=== PATIENT | female | born 1945 | race Caucasian/White ===

== ENCOUNTER 2018-08-14 09:24 | Day surgery (SDC) | payer MEDICARE, OTHER, SELFPAY ==
--- NOTE | 2018-08-14 | PATH_ITS ---
[facility] Accession Number: [id number] . 01 Material submitted: . colon - RIGHT COLON SMALL SESSILE POLYP . 02 Diagnosis: Right Colon, Small Sessile Polyp: Tubular adenoma. [facility]/08/18/2018 . 02 Electronically signed: . Joni Claudio MD, PhD, Pathologist NPI- [id number] . 01 Gross description: . RIGHT COLON SMALL SESSILE POLYP: Received in formalin is 1 fragment(s) of lepe, soft tissue measuring 0.5 x 0.3 x 0.3 cm submitted entirely in 1 cassette(s) /CKI /CKI . 02 Pathologist provided ICD-10: D12.6 . 02 CPT . 369990 Performed at: 01 [facility] [address] [id number] MD Aries Ramey MD Phone: [phone] Performed at: 02 [facility] [address] [place], [place] [id number] MD Soco Olson MD Phone: [phone]
[2018-08-14 12:34] VITALS: BP 132/73; PULSE 54; RESP 16; TEMP 36.4; O2SAT 98; BMI 35.2
--- NOTE | 2018-08-14 13:18 | PM.HP.1 ---
History of Present Illness Date Patient Seen: 08/14/18 Time Patient Seen: 13:18 Chief complaint: [id number] Narrative: 73-year-old female presents for screening colonoscopy her last screening colonoscopy was over 10 years ago, she does not have a personal or family history of colon polyps or colorectal cancer. Generally well without intestinal complaints Tolerated the prep Patient History Medical History (Updated 08/14/18 @ 13:19 by Yoni Martinez MD) Hypertension (Acute) Surgical History (Updated 08/06/17 @ 06:15 by Conversion Provider) History of carpal tunnel repair History of knee replacement History of knee replacement Status post dilation and curettage Status post discectomy Family History (Updated 02/16/14 @ 00:00 by Conversion Provider) Child Age: 51 Aortic stenosis Father Diabetes mellitus Heart disease Sleep apnea Mother Age: 94 Dementia Hx of cancer of uterus Sister Age: 65 Hx of cancer of uterus Sleep apnea Social History household members: none Family & Social History Family History (Updated 02/16/14 @ 00:00 by Conversion Provider) Child Age: 51 Aortic stenosis Father Diabetes mellitus Heart disease Sleep apnea Mother Age: 94 Dementia Hx of cancer of uterus Sister Age: 65 Hx of cancer of uterus Sleep apnea Social History: household members none Meds Home Medications Medication Instructions Recorded Confirmed Type CALCIUM CARBONATE (#CALCIUM) 1,000 mg PO Q DAY #0 05/28/11 08/14/18 History CHOLECALCIFEROL (VITAMIN D3) 2,000 iu PO Q DAY #0 05/28/11 08/14/18 History (Vitamin D) COENZYME Q10 (COQ10) 300 mg PO Q DAY #0 05/28/11 08/14/18 History Fish Oil (#FISH OIL) 300 iu PO Q DAY #0 05/28/11 08/14/18 History amlodipine [Norvasc] 5 mg PO QDAY #90 tab 02/15/17 08/14/18 Rx metoprolol tartrate 50 mg tablet 50 mg PO BID #90 tab 02/26/18 08/14/18 Rx atorvastatin 10 mg tablet 10 mg PO HS #30 tab 05/15/18 08/14/18 Rx lisinopril 20 mg tablet 20 mg PO BID #60 tab 05/15/18 08/14/18 Rx triamcinolone acetonide 0 TOPICAL BID PRN 08/14/18 History Allergies Allergy/AdvReac Type Severity Reaction Status Date / Time No Known Allergies Allergy Uncoded 08/14/18 12:40 Review of Systems Constitutional Constitutional: Denies fever(s) Eyes Eyes: Denies bulging eyes ENT Ears, Nose, Mouth, and Throat: No lip swelling Cardiovascular Cardiovascular: Denies generalize swelling Respiratory Respiratory: Denies stridor Gastrointestinal Gastrointestinal: Denies coffee ground emesis Musculoskeletal Musculoskeletal: Denies loss of height Integumentary/Breasts Skin/Breast: Denies wounds Neurologic Neurologic: Denies abnormal speech and Denies confusion Psychiatric Psychiatric: Denies confusion Endocrine Endocrine: Denies deepening of the voice Hematologic/Lymphatic Hematologic/Lymphatic: Denies lymphadenopathy Allergic/Immunologic Allergic/Immunologic: Denies lip swelling Exam Vital Signs (past 8 hours): - 08/14/18 12:34 Temperature 97.5 F L Pulse Rate 54 L Respiratory Rate 16 Blood Pressure 132/73 Pulse Oximetry 98 Oxygen Delivery Method Room Air Const General: cooperative and healthy appearing Orientation: alert HENMT Head: normal to inspection Nose: nares normal Mouth: oral mucosae normal and lip normal Eyes Eyelids: eyelids normal Conjunctivae: conjunctivae normal Sclera: sclerae normal Neck Neck: supple and other (No thyromegally) Chest Chest: other (LCTAB , regular respiratory effort) Cardio Rhythm: regular rhythm Heart Sounds: S1 normal, S2 normal, no gallops and no rubs Other: Two hundred six flow murmur at the cardiac base GI Other: Abdomen soft nontender nondistended Skin General: no rashes or lesions noted Neuro General: alert and awake Psych Appearance: grossly normal Affect: normal affect Assessment & Plan Assessment & Plan narrative: 73-year-old woman presents for screening colonoscopy Risks and benefits of colonoscopy were discussed -including risk of , perforation, missed lesion, hypoxia This patient is ready to proceed
[2018-08-14] MEDS: MIDAZOLAM 5 MG/5 ML VIAL IV (13:50)
[2018-08-14] MEDS: fentaNYL 250 MCG/5 ML INJ IV (13:51)
--- NOTE | 2018-08-14 14:17 | PM.OP.ENDO ---
Operative Date/Time/Diagnoses Date of procedure: 08/14/18 Time of procedure: 14:17 Post-op diagnosis: other (Colon polyp) Procedure & Clinicians Study performed: Screening colonoscopy, cold biopsy forcep polypectomy x1 right colon Same procedure as scheduled: No Indications: 73-year-old female presents for screening colonoscopy her last screening colonoscopy was 11 years ago Surgeon: Yoni Martinez Procedure Notes SCOAP/Timeout: Completed Procedure in detail: Patient was brought to the endoscopy suite, a time-out was completed, patient was sedated with midazolam and fentanyl. A digital rectal exam was performed and were no polyps or masses palpated. 160 cm colonoscope was introduced through the anus and advanced through the rectum, a transit through the sigmoid colon into the left colon and through the transverse colon without difficulty. some time was needed with multiple passes to successfully pass through the hepatic flexure. This was done successfully and the scope was advanced to the cecum. Ileocecal valve was identified as was the appendiceal orifice and the [place] foot. The scope was then withdrawn with the scope withdrawal time 10 minutes. There is a small sessile polyp noted within the right colon -this was removed with cold biopsy forceps. Area was irrigated after removal and reinspected and polyp was found to be entirely removed. He then continued to back the colonoscope out. No additional polyps were identified. there were scattered sigmoid diverticula Scope was retroflexed in the distal rectum and no distal rectal lesions identified Prep was adequate Scope withdrawal time: 10 minutes Sedation minutes: 49 Findings: diverticulosis Specimen(s): other (Right colon sessile polyp) Impression: 1. Sigmoid diverticulosis 2. Right colon small sessile polyp status post cold biopsy x1 Recommendations: Colonscopy in 5 years Follow up: as needed Disposition: PACU
[2018-08-14 15:09] VITALS: BP 123/72; PULSE 57; RESP 16; TEMP 36.4; O2SAT 97
== END 2018-08-14 15:05 | disposition home or self-care (01) ==
PROVIDERS: PCP Family Medicine; Visit Provider Surgery
PROC: 0DJD8ZZ Inspection of Lower Intestinal Tract, Via Natural or Artificial Opening Endoscopic (ICD-10-PCS; CPT 45378; principal; 2018-08-14 10:45)
DX: Z12.11 Encounter for screening for malignant neoplasm of colon (principal); K57.30 Diverticulosis of large intestine without perforation or abscess without bleeding; I10 Essential (primary) hypertension; D12.2 Benign neoplasm of ascending colon
CPT/HCPCS: 45380; 88305; 99152; 99153; J2250; J3010

== ENCOUNTER → 2018-09-18 09:30 | Outpatient (CLI) | payer MEDICARE, OTHER, SELFPAY ==
[2018-09-18 10:04] LABS: Add Manual Diff / Slide Review NO; Basophils Absolute Auto 100 /uL (0-100); Basophils Percent Auto 1.3 % (0-2); Eosinophils Absolute Auto 200 /uL (0-450); Eosinophils Percent Auto 3.7 % (2-4); Hematocrit 34.4 % (36-46); Hemoglobin 11.9 g/dL (12.0-16.0); Lymphocytes Absolute Auto 1600 /uL (1100-4500); Mean Corpuscular HGB Conc 34.7 % (30-36); Mean Corpuscular Hemoglobin 29.6 PG (26-34); Mean Corpuscular Volume 85.3 fL (80-100); Monocytes Absolute Auto 400 /uL (0-900); Monocytes Percent Auto 7.8 % (3-14); Neutrophils Absolute Auto 3000 /uL (1500-7000); Neutrophils Percent Auto 57.2 % (50-75); Platelet Count 225 X10^3/uL (150-400); Red Blood Cell Count 4.03 X10^6/uL (4.0-5.2); Red Cell Distribution Width 13.3 % (11.6-14.8); White Blood Cell Count 5.2 X10^3/uL (4.5-11.0)
[2018-09-18 10:24] LABS: Alanine Aminotransferase 18 IU/L (9-52); Albumin 4.4 g/dL (3.5-5.0); Albumin Globulin Ratio 1.5 (1.0-2.8); Alkaline Phosphatase 79 U/L (38-126); Aspartate Aminotransferase 23 IU/L (14-36); Bilirubin Total 0.6 mg/dL (0.2-1.3); Blood Urea Nitrogen 12 mg/dL (7-17); C-Reactive Protein Quant 0.7 mg/dL (<1.0); Calcium 9.7 mg/dL (8.4-10.2); Carbon Dioxide 26 mmol/L (22-32); Chloride 95 mmol/L (98-107); Cholesterol 143 mg/dL (140-199); Estimated Glomerular Filt Rate > 60.0 mL/min (>60); Globulin 2.9 g/dL (1.7-4.1); Glucose 99 mg/dL (80-110); HDL Cholesterol 49 mg/dL (40-60); HEMOLYSIS < 15 (0-50); LDL Cholesterol Calculated 70 mg/dL (<100); Potassium 4.7 mmol/L (3.4-5.1); Sodium 130 mmol/L (137-145); Total Protein 7.3 g/dL (6.3-8.2); Triglycerides 119 mg/dL (35-150)
[2018-09-18 10:46] LABS: Erythrocyte Sedimentation Rate 33 MM/HR (0-20)
[2018-09-18 10:54] LABS: Hemoglobin A1C% w Est Avg Glu 5.4 % (4.0-6.0)
[2018-09-18 11:24] LABS: Thyroid Stimulating Hormone 2.87 uIU/mL (0.47-4.68)
== END ==
PROVIDERS: PCP Family Medicine; Visit Provider Family Medicine
DX: E78.2 Mixed hyperlipidemia (principal); I10 Essential (primary) hypertension; K02.9 Dental caries, unspecified; K05.10 Chronic gingivitis, plaque induced; Z13.1 Encounter for screening for diabetes mellitus; Z13.29 Encounter for screening for other suspected endocrine disorder
CPT/HCPCS: 36415; 80053; 80061; 83036; 84443; 85025; 85651; 86140

== ENCOUNTER → 2020-03-21 11:11 | Outpatient (CLI) | payer MEDICARE, OTHER, SELFPAY ==
[2020-03-21 11:39] LABS: Add Manual Diff / Slide Review NO; Basophils Absolute Auto 100 /uL (0-100); Basophils Percent Auto 1.2 % (0-2); Eosinophils Absolute Auto 100 /uL (0-450); Eosinophils Percent Auto 1.7 % (2-4); Hematocrit 37.8 % (36-46); Hemoglobin 12.6 g/dL (12.0-16.0); Lymphocytes Absolute Auto 1800 /uL (1100-4500); Lymphocytes Percent Auto 30.2 % (25-40); Mean Corpuscular HGB Conc 33.3 % (30-36); Mean Corpuscular Hemoglobin 29.3 PG (26-34); Mean Corpuscular Volume 87.8 fL (80-100); Monocytes Absolute Auto 500 /uL (0-900); Monocytes Percent Auto 7.5 % (3-14); Neutrophils Absolute Auto 3600 /uL (1500-7000); Neutrophils Percent Auto 59.4 % (50-75); Platelet Count 250 X10^3/uL (150-400); Red Blood Cell Count 4.31 X10^6/uL (4.0-5.2); Red Cell Distribution Width 13.5 % (11.6-14.8); White Blood Cell Count 6.1 X10^3/uL (4.5-11.0)
[2020-03-21 12:19] LABS: Alanine Aminotransferase 25 IU/L (<35); Albumin 4.2 g/dL (3.5-5.0); Albumin Globulin Ratio 1.3 (1.0-2.8); Alkaline Phosphatase 77 U/L (38-126); Aspartate Aminotransferase 33 IU/L (14-36); BUN Creatinine Ratio 15.1 (6-22); Bilirubin Total 0.6 mg/dL (0.2-1.3); Blood Urea Nitrogen 11 mg/dL (7-17); Calcium 9.3 mg/dL (8.4-10.2); Carbon Dioxide 25 mmol/L (22-32); Chloride 103 mmol/L (98-107); Cholesterol 147 mg/dL (140-199); Estimated Glomerular Filt Rate > 60.0 mL/min (>60); Globulin 3.2 g/dL (1.7-4.1); Glucose 111 mg/dL (80-110); HDL Cholesterol 48 mg/dL (40-60); HEMOLYSIS < 15 (0-50); LDL Cholesterol Calculated 76 mg/dL (<100); Potassium 4.2 mmol/L (3.4-5.1); Sodium 135 mmol/L (137-145); Total Protein 7.4 g/dL (6.3-8.2); Triglycerides 116 mg/dL (35-150)
== END ==
PROVIDERS: PCP Family Medicine; Referring Provider Family Medicine; Visit Provider Family Medicine
DX: E78.2 Mixed hyperlipidemia (principal); I10 Essential (primary) hypertension
CPT/HCPCS: 36415; 80053; 80061; 85025

== ENCOUNTER → 2020-03-23 10:28 | Outpatient (CLI) | payer MEDICARE, OTHER, SELFPAY ==
--- NOTE | 2020-03-23 10:29 | DI.RAD.S_ITS ---
PROCEDURE: XR CHEST 2V INDICATIONS: Shortness of breath TECHNIQUE: 2 views of the chest were acquired. COMPARISON: None. FINDINGS: Surgical changes and devices: None. Lungs and pleura: Lungs are clear. No pleural effusions or pneumothorax. Mediastinum: Mediastinal contours are normal. Heart size is normal. Bones and chest wall: No suspicious bony abnormalities. Soft tissues appear unremarkable. IMPRESSION: Normal for age, source of current shortness of breath symptoms is not seen. Dictated by: Colt Miles M.D. on 03/23/2020 at 10:55 Approved by: Colt Miles M.D. on 03/23/2020 at 10:55
== END ==
PROVIDERS: PCP Family Medicine; Referring Provider Family Medicine; Visit Provider Family Medicine
DX: R06.02 Shortness of breath (principal)
CPT/HCPCS: 71046

== ENCOUNTER → 2020-08-15 10:12 | Outpatient (CLI) | payer MEDICARE, OTHER, SELFPAY ==
--- NOTE | 2020-08-15 | DI.MG.S_ITS ---
BILATERAL DIGITAL SCREENING MAMMOGRAM 3D/2D WITH CAD: 08/15/2020 Comparison is made to exams dated: 06/07/2017 mammogram, 02/23/2016 mammogram, and 02/03/2015 mammogram - [facility]. The tissue of both breasts is predominantly fatty. Current study was also evaluated with a Computer Aided Detection (CAD) system. No significant masses, calcifications, or other findings are seen in either breast. There has been no significant interval change. IMPRESSION: NEGATIVE There is no mammographic evidence of malignancy. A 1 year screening mammogram is recommended. This exam was interpreted at Station ID: [id number]. NOTE: For mammograms, a report in lay terms will be sent to the patient. Approximately 15% of breast malignancies will not be visualized mammographically. In the management of a palpable breast mass, a negative mammogram must not discourage biopsy of a clinically suspicious lesion. Electronically Signed By: Aayush hutson/brandy:08/15/2020 11:15:33 letter sent: Normal Exam ACR BI-RADS Category 1: Negative 3341F
== END ==
PROVIDERS: PCP Family Medicine; Referring Provider Family Medicine; Visit Provider Family Medicine
DX: Z12.31 Encounter for screening mammogram for malignant neoplasm of breast (principal)
CPT/HCPCS: 77063; 77067

== ENCOUNTER → 2021-01-16 10:48 | Outpatient (CLI) | payer MEDICARE, OTHER, SELFPAY ==
[2021-01-16 11:49] LABS: Add Manual Diff / Slide Review NO; Basophils Absolute Auto 100 /uL (0-100); Basophils Percent Auto 1.9 % (0-2); Eosinophils Absolute Auto 300 /uL (0-450); Eosinophils Percent Auto 4.3 % (2-4); Hematocrit 40.5 % (36-46); Hemoglobin 13.6 g/dL (12.0-16.0); Lymphocytes Absolute Auto 2400 /uL (1100-4500); Lymphocytes Percent Auto 34.9 % (25-40); Mean Corpuscular HGB Conc 33.6 % (30-36); Mean Corpuscular Hemoglobin 29.7 PG (26-34); Mean Corpuscular Volume 88.4 fL (80-100); Monocytes Absolute Auto 500 /uL (0-900); Monocytes Percent Auto 6.6 % (3-14); Neutrophils Absolute Auto 3600 /uL (1500-7000); Neutrophils Percent Auto 52.3 % (50-75); Platelet Count 257 X10^3/uL (150-400); Red Blood Cell Count 4.59 X10^6/uL (4.0-5.2); Red Cell Distribution Width 13.2 % (11.6-14.8); White Blood Cell Count 6.9 X10^3/uL (4.5-11.0)
[2021-01-16 12:28] LABS: Alanine Aminotransferase 23 IU/L (<35); Albumin 4.7 g/dL (3.5-5.0); Albumin Globulin Ratio 1.5 (1.0-2.8); Alkaline Phosphatase 83 U/L (38-126); Aspartate Aminotransferase 31 IU/L (14-36); BUN Creatinine Ratio 15.7 (6-22); Bilirubin Total 0.7 mg/dL (0.2-1.3); Blood Urea Nitrogen 13 mg/dL (7-17); Calcium 9.7 mg/dL (8.4-10.2); Carbon Dioxide 29 mmol/L (22-32); Chloride 101 mmol/L (98-107); Estimated Glomerular Filt Rate > 60.0 mL/min (>60); Globulin 3.2 g/dL (1.7-4.1); Glucose 109 mg/dL (80-110); HEMOLYSIS < 15 (0-50); Potassium 4.2 mmol/L (3.4-5.1); Sodium 138 mmol/L (137-145); Total Protein 7.9 g/dL (6.3-8.2)
== END ==
PROVIDERS: PCP Family Medicine; Referring Provider Family Medicine; Visit Provider Family Medicine
DX: Z00.00 Encounter for general adult medical examination without abnormal findings (principal); I35.1 Nonrheumatic aortic (valve) insufficiency; E78.2 Mixed hyperlipidemia; I10 Essential (primary) hypertension; I34.0 Nonrheumatic mitral (valve) insufficiency; R53.83 Other fatigue
CPT/HCPCS: 36415; 80053; 84443; 85025

== ENCOUNTER → 2022-02-13 12:49 | Outpatient (CLI) | payer MEDICARE, OTHER, SELFPAY ==
--- NOTE | 2022-02-13 | DI.MG.S_ITS ---
BILATERAL DIGITAL SCREENING MAMMOGRAM 3D/2D WITH CAD: 02/13/2022 CLINICAL: Routine screening. Comparison is made to exams dated: 08/15/2020 mammogram, 06/07/2017 mammogram, and 02/23/2016 mammogram - [facility]. Both breasts are almost entirely fatty (category a/<25% glandular tissue). Current study was also evaluated with a Computer Aided Detection (CAD) system. No significant masses, calcifications, or other findings are seen in either breast. There has been no significant interval change. IMPRESSION: NEGATIVE There is no mammographic evidence of malignancy. A 1 year screening mammogram is recommended. Based on the Tyrer Cuzick model (a risk assessment model) the patient's lifetime risk is 1.9% and her 10 year risk is 1.9%. According to the ACR, ACS, and NCCN guidelines, an annual breast MRI exam along with mammogram is recommended if the patient's lifetime risk is 20% or greater. This exam was interpreted at Station ID: [id number]. NOTE: For mammograms, a report in lay terms will be sent to the patient. Approximately 15% of breast malignancies will not be visualized mammographically. In the management of a palpable breast mass, a negative mammogram must not discourage biopsy of a clinically suspicious lesion. Electronically Signed By: Aayush hutson/brandy:02/13/2022 15:49:38 letter sent: Normal Exam ACR BI-RADS Category 1: Negative 3341F
== END ==
PROVIDERS: PCP Family Medicine; Referring Provider Family Medicine; Visit Provider Family Medicine
DX: Z12.31 Encounter for screening mammogram for malignant neoplasm of breast (principal)
CPT/HCPCS: 77063; 77067

== ENCOUNTER → 2022-04-05 14:31 | Outpatient (CLI) | payer MEDICARE, OTHER, SELFPAY ==
--- NOTE | 2022-04-05 14:45 | DI.RAD.S_ITS ---
PROCEDURE: XR CHEST 2V INDICATIONS: SHORTNESS OF BREATH TECHNIQUE: 2 views of the chest were acquired. COMPARISON: [facility], , XR CHEST 2V, 03/23/2020, 10:34. FINDINGS: Surgical changes and devices: None. Lungs and pleura: Lungs are clear. No pleural effusions or pneumothorax. Mediastinum: Mediastinal contours are normal. Heart size is normal. Bones and chest wall: No suspicious bony abnormalities. Soft tissues appear unremarkable. IMPRESSION: No evidence acute pulmonary process. Dictated by: Jose Mahan M.D. on 04/05/2022 at 15:09 Approved by: Jose Mahan M.D. on 04/05/2022 at 15:09
[2022-04-05 15:47] LABS: Influenza A - CEPHEID Flu A NEGATIVE (NEGATIVE); Influenza B - CEPHEID Flu B NEGATIVE (NEGATIVE); Respiratory Syncytial Virus Negative (Negative)
[2022-04-05 15:54] LABS: COVID-19 CEPHEID 4-PLEX PCR Negative (Negative)
== END ==
PROVIDERS: PCP Family Medicine; Referring Provider Registered Nurse; Visit Provider Registered Nurse
DX: J06.9 Acute upper respiratory infection, unspecified (principal); R06.02 Shortness of breath
CPT/HCPCS: 0241U; 71046

== ENCOUNTER → 2022-04-06 09:37 | Outpatient (CLI) | payer MEDICARE, OTHER, SELFPAY ==
[2022-04-06 12:08] LABS: Add Manual Diff / Slide Review NO; Basophils Absolute Auto 100 /uL (0-100); Eosinophils Absolute Auto 0 /uL (0-450); Eosinophils Percent Auto 0.6 % (2-4); Hematocrit 23.9 % (36-46); Hemoglobin 8.2 g/dL (12.0-16.0); Lymphocytes Absolute Auto 1600 /uL (1100-4500); Lymphocytes Percent Auto 22.4 % (25-40); Mean Corpuscular HGB Conc 34.5 % (30-36); Mean Corpuscular Hemoglobin 29.7 PG (26-34); Mean Corpuscular Volume 86.1 fL (80-100); Monocytes Absolute Auto 500 /uL (0-900); Monocytes Percent Auto 7.4 % (3-14); Neutrophils Absolute Auto 4900 /uL (1500-7000); Neutrophils Percent Auto 68.6 % (50-75); Platelet Count 222 X10^3/uL (150-400); Red Blood Cell Count 2.77 X10^6/uL (4.0-5.2); Red Cell Distribution Width 14.4 % (11.6-14.8); White Blood Cell Count 7.2 X10^3/uL (4.5-11.0)
[2022-04-06 12:50] LABS: Alanine Aminotransferase 19 IU/L (<35); Albumin 3.9 g/dL (3.5-5.0); Albumin Globulin Ratio 1.5 (1.0-2.8); Alkaline Phosphatase 70 U/L (38-126); Aspartate Aminotransferase 27 IU/L (14-36); BUN Creatinine Ratio 23.9 (6-22); Bilirubin Total 0.6 mg/dL (0.2-1.3); Blood Urea Nitrogen 17 mg/dL (7-17); Calcium 8.8 mg/dL (8.4-10.2); Carbon Dioxide 25 mmol/L (22-32); Chloride 98 mmol/L (98-107); Cholesterol 151 mg/dL (140-199); Estimated Glomerular Filt Rate > 60 mL/min (>60); Globulin 2.6 g/dL (1.7-4.1); Glucose 112 mg/dL (80-110); HDL Cholesterol 47 mg/dL (40-60); HEMOLYSIS < 15 (0-50); LDL Cholesterol Calculated 82 mg/dL (<100); Potassium 3.6 mmol/L (3.4-5.1); Sodium 135 mmol/L (137-145); Total Protein 6.5 g/dL (6.3-8.2); Triglycerides 110 mg/dL (35-150)
== END ==
PROVIDERS: PCP Family Medicine; Referring Provider Family Medicine; Visit Provider Family Medicine
DX: G47.01 Insomnia due to medical condition (principal); E78.2 Mixed hyperlipidemia; I10 Essential (primary) hypertension; Z00.00 Encounter for general adult medical examination without abnormal findings
CPT/HCPCS: 36415; 80053; 80061; 84443; 85025

== ENCOUNTER 2022-04-06 09:54 | Inpatient (IN) | payer MEDICARE, OTHER, SELFPAY ==
[2022-04-06] VITALS (19 sets, daily range): BP systolic 138–205; BP diastolic 68–80; PULSE 72–107; RESP 16–50; TEMP 36.2–36.9; O2SAT 97–99; BMI 37.8; BMI 36.3
--- NOTE | 2022-04-06 10:08 | ED_ITS ---
HPI - SOB/Dyspnea General Chief Complaint: Shortness of Breath/Dyspnea Stated Complaint: sob/weakness x2 days Time Seen by Provider: 04/06/22 10:08 Source: patient Mode of arrival: Ambulatory Limitations: no limitations History of Present Illness HPI Narrative: 77-year-old female nonsmoker with history of hypertension, hyperlipidemia, AFib on Xarelto presents with 2 days of increasing shortness of breath, fatigue and weakness. She states her shortness of breath is worse with exertion and she denies any change with lying flat. She denies any lower extremity swelling, pain, redness or weight gain. She denies headache, blurred vision, runny nose or sore throat. She does state that she is had dark stools for the past day or 2. She denies any change in medications or diet Related Data Home Medications Medication Instructions Recorded Confirmed CHOLECALCIFEROL (VITAMIN D3) 2,000 iu PO Q DAY ##0 05/28/11 04/06/22 (Vitamin D) COENZYME Q10 (COQ10) 300 mg PO Q DAY ##0 05/28/11 04/06/22 Fish Oil (#FISH OIL) 300 iu PO Q DAY ##0 05/28/11 04/06/22 Respironics Dreamstation CPAP #1 ea 12/16/18 04/06/22 doxycycline hyclate 20 mg tablet 20 mg PO BID 03/22/22 04/06/22 Previous Rx's Medication Instructions Recorded triamcinolone acetonide 0.1 % 1 applic topical BID PRN Itching 02/01/21 topical cream #15 grams furosemide 20 mg tablet (Lasix) See Rx Instructions PO QAM PRN 02/06/21 edema #180 tabs amlodipine 5 mg tablet See Rx Instructions .Route 11/29/21 .COMPLEX #180 tabs metoprolol tartrate 75 mg tablet See Rx Instructions .Route 11/29/21 .COMPLEX #180 tabs atorvastatin 10 mg tablet 10 mg PO DAILY #90 tabs 01/15/22 pantoprazole 40 mg tablet,delayed 40 mg PO DAILY 30 days #30 tabs 04/09/22 release Allergies Allergy/AdvReac Type Severity Reaction Status Date / Time No Known Drug Allergies Allergy Verified 04/05/22 14:08 Review of Systems Review of Systems Narrative: GENERAL: See HPI HEENT: Denies sinus pain, ear pain, sore throat, difficulty swallowing, dizziness. RESPIRATORY: See HPI CARDIOVASCULAR: Denies chest pain, palpitations, orthopnea, edema, GASTROINTESTINAL: See HPI : Denies dysuria, frequency, incontinence, hematuria, urinary retention. MUSCULOSKELETAL: denies weakness, joint pain, or bony pain SKIN: Denies rash, skin lesions, or other NEUROLOGIC: Denies weakness, headache, numbness, change in speech, confusion, seizures, incoordination. PSYCHIATRIC: No concerning psychosocial issues. 12 point review of systems is negative except for those stated above Patient History Medical History Atrial fib/flutter, transient Essential hypertension (01/24/17) Hypertension Insomnia due to medical condition Mixed hyperlipidemia (01/24/17) Nonrheumatic aortic (valve) insufficiency (~2011) Nonrheumatic mitral (valve) insufficiency (~2011) Obesity (BMI 30-39.9) Obstructive sleep apnea Palpitations Skin lesions, generalized Well adult exam Surgical History History of carpal tunnel repair History of knee replacement History of knee replacement Status post dilation and curettage Status post discectomy Family History Child Age: 55 Aortic stenosis Father Diabetes mellitus Heart disease Sleep apnea Mother Age: 98 Dementia Hx of cancer of uterus Sister Age: 69 Hx of cancer of uterus Sleep apnea Social History household members: none Smoking Status: Never smoker alcohol intake: current Smoking Status: Never smoker alcohol intake frequency: 0-2 drinks per day Substance Use Type: does not use Exam Narrative Exam Narrative: GENERAL: [77] year old patient appears stated age. Well-developed patient, in mild distress. HEAD: Atraumatic. Normocephalic. EYES: Pupils equal round and reactive. Pale conjunctiva ENT: Nose without bleeding, purulent drainage. Throat without erythema, tonsillar hypertrophy or exudate. Airway patent. NECK: Trachea midline. Non tender CARDIOVASCULAR: Regular rate and rhythm without murmurs, gallops, or rubs. RESPIRATORY: Clear to auscultation. Breath sounds equal bilaterally. No wheezes, rales, or rhonchi. GASTROINTESTINAL: Abdomen soft, non-tender, nondistended. RECTAL: Melena presents, performed with patient permission and female nurse irrigation equipment remover EXTREMITIES: No edema or joint tenderness. BACK: Nontender without deformity or crepitance. No flank tenderness. NEURO: AOx3. SKIN: No rash or erythema of visible areas Initial Vital Signs Initial Vital Signs: Vital Signs Temperature 97.8 F 04/06/22 10:00 Pulse Rate 80 04/06/22 10:00 Respiratory Rate 18 04/06/22 10:00 Blood Pressure 138/80 04/06/22 10:00 Pulse Oximetry 98 04/06/22 10:00 Oxygen Delivery Method 04/06/22 10:00 Course Orders Ordered: Discontinued Medications Acetaminophen (Acetaminophen 325 Mg Tablet) 650 mg PO Q6H PRN PRN Reason: Fever/Mild Pain (1-3) Albuterol (Albuterol 2.5 Mg/3 Ml Neb (Adult)) 2.5 mg INH NOW PRN PRN Reason: Coughing, Wheezing, Dyspnea Last Admin: 04/08/22 15:35 Dose: 2.5 mg Documented By: DOUG Albuterol/Ipratropium (Albuterol/Ipratropium 3 Ml Ampul) 3 ml INH NOW ONE Stop: 04/07/22 11:28 Last Admin: 04/07/22 14:45 Dose: Not Given Documented By: DAWSON Albuterol/Ipratropium (Albuterol/Ipratropium 3 Ml Ampul) 3 ml INH NOW ONE Stop: 04/08/22 08:31 Last Admin: 04/08/22 09:21 Dose: Not Given Documented By: WILY Amlodipine Besylate (Amlodipine 5 Mg Tablet) 5 mg PO BID [facility] Last Admin: 04/09/22 09:15 Dose: 5 mg Documented By: Admin: 04/08/22 20:15 Dose: 5 mg Documented By: Admin: 04/08/22 15:01 Dose: Not Given Documented By: Admin: 04/07/22 20:54 Dose: 5 mg Documented By: SANGITA Atorvastatin Calcium (Atorvastatin 20 Mg Tablet) 10 mg PO DAILY [facility] Last Admin: 04/09/22 09:15 Dose: 10 mg Documented By: Admin: 04/08/22 15:01 Dose: Not Given Documented By: Admin: 04/07/22 10:13 Dose: Not Given Documented By: DAWSON Benzocaine (Benzocaine/Menthol 1 Otf Pkt) 1 each PO Q1HR PRN PRN Reason: Sore Throat Last Admin: 04/08/22 18:11 Dose: 1 each Documented By: DAWSON Fentanyl (Fentanyl 100 Mcg/2 Ml Inj) 0 mcg IV Q5M PRN PRN Reason: Pain, Moderate (4-6) POTASSIUM CHLORIDE IN WATER (Potassium Cl 10 Meq/100 Ml Prudence) 10 meq in 100 mls @ 100 mls/hr IV Q1H MARLIN Stop: 04/07/22 12:29 Last Admin: 04/07/22 14:44 Dose: Not Given Documented By: Admin: 04/07/22 14:44 Dose: Not Given Documented By: Admin: 04/07/22 14:42 Dose: Not Given Documented By: Infusion: 04/07/22 10:16 Dose: 25 mls/hr Documented By: Infusion: 04/07/22 10:07 Dose: 50 mls/hr Documented By: Admin: 04/07/22 09:53 Dose: 100 mls/hr Documented By: DAWSON Lactated Ringer's (Lactated Ringers) 1,000 mls @ 42 mls/hr IV NOW ONE Stop: 04/08/22 10:35 Last Infusion: 04/07/22 11:59 Dose: 0 mls/hr Documented By: Admin: 04/07/22 10:48 Dose: 42 mls/hr Documented By: OMARI Lactated Ringer's (Lactated Ringers) 1,000 mls @ 120 mls/hr IV CONT MARLIN Last Admin: 04/09/22 05:56 Dose: 120 mls/hr Documented By: Infusion: 04/08/22 22:46 Dose: 120 mls/hr Documented By: Admin: 04/08/22 14:26 Dose: 120 mls/hr Documented By: DAWSON Metoprolol Tartrate (Metoprolol Ir 25 Mg Tablet) 75 mg PO BID [facility] Last Admin: 04/09/22 09:15 Dose: 75 mg Documented By: Admin: 04/08/22 20:15 Dose: 75 mg Documented By: Admin: 04/08/22 14:26 Dose: 75 mg Documented By: Admin: 04/07/22 20:54 Dose: 75 mg Documented By: Admin: 04/07/22 09:54 Dose: 75 mg Documented By: DAWSON Ondansetron HCl (Ondansetron 4 Mg/2 Ml Inj) 4 mg IV NOW PRN PRN Reason: Nausea And Vomiting Pantoprazole Sodium (Pantoprazole 40 Mg Vial) 40 mg IV NOW ONE Stop: 04/06/22 12:34 Last Admin: 04/06/22 13:40 Dose: 40 mg Documented By: HAMIDA Pantoprazole Sodium (Pantoprazole 40 Mg Vial) 40 mg IV BID [facility] Last Admin: 04/09/22 09:12 Dose: 40 mg Documented By: Admin: 04/08/22 20:15 Dose: 40 mg Documented By: Admin: 04/08/22 15:01 Dose: Not Given Documented By: Admin: 04/07/22 20:54 Dose: 40 mg Documented By: Admin: 04/07/22 10:13 Dose: Not Given Documented By: Admin: 04/06/22 21:12 Dose: 40 mg Documented By: SANGITA Polyethylene Glycol/Electrolytes ([id number]/Sod Sulf,Bicarb,Cl/Kcl 4,000 Ml Solution) 4,000 ml PO NOW ONE Stop: 04/07/22 11:27 Last Admin: 04/07/22 14:42 Dose: 4,000 ml Documented By: DAWSON Potassium Chloride (Potassium Chloride 20 Meq Tab) 40 meq PO NOW ONE Stop: 04/07/22 13:16 Last Admin: 04/07/22 14:42 Dose: 40 meq Documented By: DAWSON Potassium Chloride (Potassium Chloride 20 Meq Tab) 40 meq PO Q6H [facility] Stop: 04/08/22 16:01 Last Admin: 04/08/22 18:08 Dose: 40 meq Documented By: Admin: 04/08/22 14:26 Dose: 40 meq Documented By: DAWSON Potassium Chloride (Potassium Chloride 20 Meq Tab) 40 meq PO Q6H [facility] Stop: 04/08/22 18:16 Last Admin: 04/08/22 18:18 Dose: 40 meq Documented By: DAWSON Vital Signs Vital signs: Vital Signs - 8 hr 04/06/22 10:00 04/06/22 11:17 04/06/22 11:18 Temperature 97.8 F Pulse Rate 80 Respiratory Rate 18 29 H Blood Pressure 138/80 155/72 H Pulse Oximetry 98 Oxygen Delivery Method Room Air 04/06/22 11:18 04/06/22 11:30 04/06/22 11:30 Temperature Pulse Rate 73 73 Respiratory Rate 17 21 Blood Pressure 163/79 H Pulse Oximetry 97 98 Oxygen Delivery Method MDM - SOB/Dyspnea Lab Data Result diagrams: 04/09/22 05:07 04/09/22 05:07 Labs: Lab Results 04/06/22 04/06/22 04/06/22 Range/Units 10:22 10:22 10:22 WBC 7.0 (4.5-11.0) X10^3/uL RBC 2.76 L (4.0-5.2) X10^6/uL Hgb 8.1 L (12.0-16.0) g/dL Hct 23.5 L (36-46) % MCV 85.1 (80-100) fL MCH 29.5 (26-34) PG MCHC 34.7 (30-36) % RDW 14.8 (11.6-14.8) % Plt Count 227 (150-400) X10^3/uL Neut % (Auto) 70.8 (50-75) % Lymph % (Auto) 20.6 L (25-40) % Finney % (Auto) 6.6 (3-14) % Eos % (Auto) 0.6 L (2-4) % Baso % (Auto) 1.4 (0-2) % Neut # (Auto) 4900 (0335-8393) /uL Lymph # (Auto) 1400 (0022-8637) /uL Finney # (Auto) 500 (0-900) /uL Eos # (Auto) 0 (0-450) /uL Baso # (Auto) 100 (0-100) /uL Percent Retic (1.1-2.6) % Haptoglobin (42-346) mg/dL PT 12.8 H (10.1-12.7) SECONDS INR 1.1 (0.9-1.3) APTT 31 (26-36) SECONDS Sodium 136 L (137-145) mmol/L Potassium 3.2 L (3.4-5.1) mmol/L Chloride 98 (98-107) mmol/L Carbon Dioxide 25 (22-32) mmol/L BUN 17 (7-17) mg/dL Creatinine 0.67 (0.52-1.04) mg/dL Estimated GFR > 60 (>60) mL/min BUN/Creatinine Ratio 25.4 H (6-22) Glucose 117 H (80-110) mg/dL Calcium 8.7 (8.4-10.2) mg/dL Magnesium 1.8 (1.6-2.3) mg/dL Iron (37-170) ug/dL TIBC (265-497) ug/dL % Saturation (15-50) % Transferrin (206-381) mg/dL Total Bilirubin 0.7 (0.2-1.3) mg/dL AST 38 H (14-36) IU/L ALT 20 (<35) IU/L Alkaline Phosphatase 71 (38-126) U/L Lactate Dehydrogenase (120-246) U/L Total Creatine Kinase 133 (30-135) U/L CK-MB (CK-2) 0.70 (<2.37) ng/mL CK-MB (CK-2) Rel Index 0.5 L (1.5-5.0) % Troponin I 0.013 (0.01-0.034) ng/mL NT-Pro-B Natriuret Pep (<450) pg/mL Total Protein 7.1 (6.3-8.2) g/dL Albumin 4.1 (3.5-5.0) g/dL Globulin 3.0 (1.7-4.1) g/dL Albumin/Globulin Ratio 1.4 (1.0-2.8) Lipase 125 (23-300) U/L Vitamin B12 (239-931) pg/mL Folate (2.76-20.0) ng/mL SARS-CoV-2 (PCR) (Negative) Blood Type Antibody Screen Crossmatch 04/06/22 04/06/22 04/06/22 Range/Units 10:22 10:27 10:27 WBC (4.5-11.0) X10^3/uL RBC (4.0-5.2) X10^6/uL Hgb (12.0-16.0) g/dL Hct (36-46) % MCV (80-100) fL MCH (26-34) PG MCHC (30-36) % RDW (11.6-14.8) % Plt Count (150-400) X10^3/uL Neut % (Auto) (50-75) % Lymph % (Auto) (25-40) % Finney % (Auto) (3-14) % Eos % (Auto) (2-4) % Baso % (Auto) (0-2) % Neut # (Auto) (1782-8473) /uL Lymph # (Auto) (6679-8764) /uL Finney # (Auto) (0-900) /uL Eos # (Auto) (0-450) /uL Baso # (Auto) (0-100) /uL Percent Retic 4.5 H (1.1-2.6) % Haptoglobin (42-346) mg/dL PT (10.1-12.7) SECONDS INR (0.9-1.3) APTT (26-36) SECONDS Sodium (137-145) mmol/L Potassium (3.4-5.1) mmol/L Chloride (98-107) mmol/L Carbon Dioxide (22-32) mmol/L BUN (7-17) mg/dL Creatinine (0.52-1.04) mg/dL Estimated GFR (>60) mL/min BUN/Creatinine Ratio (6-22) Glucose (80-110) mg/dL Calcium (8.4-10.2) mg/dL Magnesium (1.6-2.3) mg/dL Iron 58 (37-170) ug/dL TIBC 387 (265-497) ug/dL % Saturation 15 (15-50) % Transferrin 291 (206-381) mg/dL Total Bilirubin (0.2-1.3) mg/dL AST (14-36) IU/L ALT (<35) IU/L Alkaline Phosphatase (38-126) U/L Lactate Dehydrogenase (120-246) U/L Total Creatine Kinase (30-135) U/L CK-MB (CK-2) (<2.37) ng/mL CK-MB (CK-2) Rel Index (1.5-5.0) % Troponin I (0.01-0.034) ng/mL NT-Pro-B Natriuret Pep 650 H (<450) pg/mL Total Protein (6.3-8.2) g/dL Albumin (3.5-5.0) g/dL Globulin (1.7-4.1) g/dL Albumin/Globulin Ratio (1.0-2.8) Lipase (23-300) U/L Vitamin B12 (239-931) pg/mL Folate (2.76-20.0) ng/mL SARS-CoV-2 (PCR) (Negative) Blood Type Antibody Screen Crossmatch 04/06/22 04/06/22 04/06/22 Range/Units 10:27 10:27 11:41 WBC (4.5-11.0) X10^3/uL RBC (4.0-5.2) X10^6/uL Hgb (12.0-16.0) g/dL Hct (36-46) % MCV (80-100) fL MCH (26-34) PG MCHC (30-36) % RDW (11.6-14.8) % Plt Count (150-400) X10^3/uL Neut % (Auto) (50-75) % Lymph % (Auto) (25-40) % Finney % (Auto) (3-14) % Eos % (Auto) (2-4) % Baso % (Auto) (0-2) % Neut # (Auto) (1304-5889) /uL Lymph # (Auto) (0480-0184) /uL Finney # (Auto) (0-900) /uL Eos # (Auto) (0-450) /uL Baso # (Auto) (0-100) /uL Percent Retic (1.1-2.6) % Haptoglobin 153 (42-346) mg/dL PT (10.1-12.7) SECONDS INR (0.9-1.3) APTT (26-36) SECONDS Sodium (137-145) mmol/L Potassium (3.4-5.1) mmol/L Chloride (98-107) mmol/L Carbon Dioxide (22-32) mmol/L BUN (7-17) mg/dL Creatinine (0.52-1.04) mg/dL Estimated GFR (>60) mL/min BUN/Creatinine Ratio (6-22) Glucose (80-110) mg/dL Calcium (8.4-10.2) mg/dL Magnesium (1.6-2.3) mg/dL Iron (37-170) ug/dL TIBC (265-497) ug/dL % Saturation (15-50) % Transferrin (206-381) mg/dL Total Bilirubin (0.2-1.3) mg/dL AST (14-36) IU/L ALT (<35) IU/L Alkaline Phosphatase (38-126) U/L Lactate Dehydrogenase 197 (120-246) U/L Total Creatine Kinase (30-135) U/L CK-MB (CK-2) (<2.37) ng/mL CK-MB (CK-2) Rel Index (1.5-5.0) % Troponin I (0.01-0.034) ng/mL NT-Pro-B Natriuret Pep (<450) pg/mL Total Protein (6.3-8.2) g/dL Albumin (3.5-5.0) g/dL Globulin (1.7-4.1) g/dL Albumin/Globulin Ratio (1.0-2.8) Lipase (23-300) U/L Vitamin B12 895 (239-931) pg/mL Folate 13.1 (2.76-20.0) ng/mL SARS-CoV-2 (PCR) Negative (Negative) Blood Type Antibody Screen Crossmatch 04/06/22 04/07/22 04/07/22 Range/Units 12:33 04:52 04:52 WBC 6.0 (4.5-11.0) X10^3/uL RBC 2.78 L (4.0-5.2) X10^6/uL Hgb 8.3 L (12.0-16.0) g/dL Hct 23.7 L (36-46) % MCV 85.2 (80-100) fL MCH 29.7 (26-34) PG MCHC 34.8 (30-36) % RDW 14.3 (11.6-14.8) % Plt Count 217 (150-400) X10^3/uL Neut % (Auto) 55.9 (50-75) % Lymph % (Auto) 33.1 (25-40) % Finney % (Auto) 8.1 (3-14) % Eos % (Auto) 1.8 L (2-4) % Baso % (Auto) 1.1 (0-2) % Neut # (Auto) 3300 (8350-5264) /uL Lymph # (Auto) 2000 (6977-4413) /uL Finney # (Auto) 500 (0-900) /uL Eos # (Auto) 100 (0-450) /uL Baso # (Auto) 100 (0-100) /uL Percent Retic (1.1-2.6) % Haptoglobin (42-346) mg/dL PT (10.1-12.7) SECONDS INR (0.9-1.3) APTT (26-36) SECONDS Sodium 135 L (137-145) mmol/L Potassium 3.0 L (3.4-5.1) mmol/L Chloride 102 (98-107) mmol/L Carbon Dioxide 26 (22-32) mmol/L BUN 10 (7-17) mg/dL Creatinine 0.72 (0.52-1.04) mg/dL Estimated GFR > 60 (>60) mL/min BUN/Creatinine Ratio 13.9 (6-22) Glucose 95 (80-110) mg/dL Calcium 8.2 L (8.4-10.2) mg/dL Magnesium (1.6-2.3) mg/dL Iron (37-170) ug/dL TIBC (265-497) ug/dL % Saturation (15-50) % Transferrin (206-381) mg/dL Total Bilirubin (0.2-1.3) mg/dL AST (14-36) IU/L ALT (<35) IU/L Alkaline Phosphatase (38-126) U/L Lactate Dehydrogenase (120-246) U/L Total Creatine Kinase (30-135) U/L CK-MB (CK-2) (<2.37) ng/mL CK-MB (CK-2) Rel Index (1.5-5.0) % Troponin I (0.01-0.034) ng/mL NT-Pro-B Natriuret Pep (<450) pg/mL Total Protein (6.3-8.2) g/dL Albumin (3.5-5.0) g/dL Globulin (1.7-4.1) g/dL Albumin/Globulin Ratio (1.0-2.8) Lipase (23-300) U/L Vitamin B12 (239-931) pg/mL Folate (2.76-20.0) ng/mL SARS-CoV-2 (PCR) (Negative) Blood Type O Positive Antibody Screen Negative Crossmatch See Detail 04/07/22 04/08/22 04/08/22 Range/Units 12:55 04:57 04:57 WBC 6.6 (4.5-11.0) X10^3/uL RBC 2.71 L (4.0-5.2) X10^6/uL Hgb 9.0 L 7.9 L (12.0-16.0) g/dL Hct 25.9 L 23.4 L (36-46) % MCV 86.6 (80-100) fL MCH 29.1 (26-34) PG MCHC 33.6 (30-36) % RDW 15.0 H (11.6-14.8) % Plt Count 219 (150-400) X10^3/uL Neut % (Auto) 63.3 (50-75) % Lymph % (Auto) 26.5 (25-40) % Finney % (Auto) 7.8 (3-14) % Eos % (Auto) 1.4 L (2-4) % Baso % (Auto) 1.0 (0-2) % Neut # (Auto) 4200 (5576-5983) /uL Lymph # (Auto) 1700 (3950-0746) /uL Finney # (Auto) 500 (0-900) /uL Eos # (Auto) 100 (0-450) /uL Baso # (Auto) 100 (0-100) /uL Percent Retic (1.1-2.6) % Haptoglobin (42-346) mg/dL PT (10.1-12.7) SECONDS INR (0.9-1.3) APTT (26-36) SECONDS Sodium 139 (137-145) mmol/L Potassium 3.3 L (3.4-5.1) mmol/L Chloride 106 (98-107) mmol/L Carbon Dioxide 26 (22-32) mmol/L BUN 12 (7-17) mg/dL Creatinine 0.79 (0.52-1.04) mg/dL Estimated GFR > 60 (>60) mL/min BUN/Creatinine Ratio 15.2 (6-22) Glucose 93 (80-110) mg/dL Calcium 8.4 (8.4-10.2) mg/dL Magnesium (1.6-2.3) mg/dL Iron (37-170) ug/dL TIBC (265-497) ug/dL % Saturation (15-50) % Transferrin (206-381) mg/dL Total Bilirubin (0.2-1.3) mg/dL AST (14-36) IU/L ALT (<35) IU/L Alkaline Phosphatase (38-126) U/L Lactate Dehydrogenase (120-246) U/L Total Creatine Kinase (30-135) U/L CK-MB (CK-2) (<2.37) ng/mL CK-MB (CK-2) Rel Index (1.5-5.0) % Troponin I (0.01-0.034) ng/mL NT-Pro-B Natriuret Pep (<450) pg/mL Total Protein (6.3-8.2) g/dL Albumin (3.5-5.0) g/dL Globulin (1.7-4.1) g/dL Albumin/Globulin Ratio (1.0-2.8) Lipase (23-300) U/L Vitamin B12 (239-931) pg/mL Folate (2.76-20.0) ng/mL SARS-CoV-2 (PCR) (Negative) Blood Type Antibody Screen Crossmatch Point of Care Testing Stool Occult Blood Positive ECG Data Interpretation: [1010] EKG is normal sinus rhythm rate [71] and free of any signs of ischemia or ectopy. No ST segmental elevation or depression. No T wave inversions Discharge Plan Departure Patient Disposition: Admitted as Observation Clinical Impression: Acute GI bleeding, Anticoagulant effect, Anemia Admit Date/Time: 04/08/22 10:05 Admit Provider: Kailee Bailey
--- NOTE | 2022-04-06 10:08 | DI.RAD.S_ITS ---
PROCEDURE: XR CHEST 2V INDICATIONS: SOB worsening TECHNIQUE: 2 views of the chest were acquired. COMPARISON: [facility], CR, XR CHEST 2V, 04/05/2022, 14:50. FINDINGS: Surgical changes and devices: None. Lungs and pleura: Lungs are clear. No pleural effusions or pneumothorax. Mediastinum: Mediastinal contours are normal. Heart size is normal. Bones and chest wall: No suspicious bony abnormalities. Soft tissues appear unremarkable. IMPRESSION: No acute cardiopulmonary abnormality. Dictated by: Anibal Nunez M.D. on 04/06/2022 at 10:57 Approved by: Anibal Nunez M.D. on 04/06/2022 at 10:58
[2022-04-06 10:31] LABS: Add Manual Diff / Slide Review NO; Basophils Absolute Auto 100 /uL (0-100); Basophils Percent Auto 1.4 % (0-2); Eosinophils Absolute Auto 0 /uL (0-450); Eosinophils Percent Auto 0.6 % (2-4); Hematocrit 23.5 % (36-46); Hemoglobin 8.1 g/dL (12.0-16.0); Lymphocytes Absolute Auto 1400 /uL (1100-4500); Lymphocytes Percent Auto 20.6 % (25-40); Mean Corpuscular HGB Conc 34.7 % (30-36); Mean Corpuscular Hemoglobin 29.5 PG (26-34); Mean Corpuscular Volume 85.1 fL (80-100); Monocytes Absolute Auto 500 /uL (0-900); Monocytes Percent Auto 6.6 % (3-14); Neutrophils Absolute Auto 4900 /uL (1500-7000); Neutrophils Percent Auto 70.8 % (50-75); Platelet Count 227 X10^3/uL (150-400); Red Blood Cell Count 2.76 X10^6/uL (4.0-5.2); Red Cell Distribution Width 14.8 % (11.6-14.8)
[2022-04-06 10:49] LABS: Alanine Aminotransferase 20 IU/L (<35); Albumin 4.1 g/dL (3.5-5.0); Albumin Globulin Ratio 1.4 (1.0-2.8); Alkaline Phosphatase 71 U/L (38-126); Aspartate Aminotransferase 38 IU/L (14-36); BUN Creatinine Ratio 25.4 (6-22); Bilirubin Total 0.7 mg/dL (0.2-1.3); Blood Urea Nitrogen 17 mg/dL (7-17); Calcium 8.7 mg/dL (8.4-10.2); Carbon Dioxide 25 mmol/L (22-32); Chloride 98 mmol/L (98-107); Creatine Kinase 133 U/L (30-135); Estimated Glomerular Filt Rate > 60 mL/min (>60); Glucose 117 mg/dL (80-110); HEMOLYSIS 24 (0-50); Lipase 125 U/L (23-300); Magnesium 1.8 mg/dL (1.6-2.3); Potassium 3.2 mmol/L (3.4-5.1); Sodium 136 mmol/L (137-145); Total Protein 7.1 g/dL (6.3-8.2)
[2022-04-06 10:50] LABS: INR 1.1 (0.9-1.3); Prothrombin Time 12.8 SECONDS (10.1-12.7)
[2022-04-06 10:53] LABS: PTT Partial Thromboplastin Tim 31 SECONDS (26-36)
[2022-04-06 10:58] LABS: NT-proBNP (BNP-Adult 18+) 650 pg/mL (<450)
[2022-04-06 11:01] LABS: Troponin I 0.013 ng/mL (0.01-0.034)
[2022-04-06 11:04] LABS: CKMB % Relative Index 0.5 % (1.5-5.0)
--- NOTE | 2022-04-06 12:39 | P.HP_ITS ---
History of Present Illness History of Present Illness Date Patient Seen: 04/06/22 Time Patient Seen: 12:00 Chief complaint: sob/weakness x2 days Narrative: Ms. Mary is a 77W with PMH atrial fibrillation on xarelto, aortic stenosis, HTN, HL who presents to the hospital with shortness of breath. She notes about a week of worsening fatigue and shortness of breath. At about the same time she noted darker stools. No BRBPR, no abdominal pain, no vomiting blood. No alcohol use, she does not use any nsaids. She has had a colonoscopy about 3 years ago which had a polyp. She states she has never had any history of GI bleeding. She has especially noted over the last 2-3 days she has had worsening shortness of breath especially with exertion. She has not had any cough, fevers/chills, chest pain, lower extremity edema, weight loss or weight gain. She denies any history of anemia In the ED workup was done, vitals notable for no tachycardia and normal blood pressure, no tachypnea, and normal O2 sats on room air. Labs notable for WBC 7.0, hgb 8.1, plts 227. Creatinine 0.67. INR 1.1. Trop 0.013. BNP 650. Chest xray showed no acute process. She was ordered for blood and protonix and admitted for further treatment. Rectal done in ED by physician was noted for g uaiac positive stool. Patient History Medical History Atrial fib/flutter, transient Essential hypertension (01/24/17) Hypertension Insomnia due to medical condition Mixed hyperlipidemia (01/24/17) Nonrheumatic aortic (valve) insufficiency (~2011) Nonrheumatic mitral (valve) insufficiency (~2011) Obesity (BMI 30-39.9) Obstructive sleep apnea Palpitations Skin lesions, generalized Well adult exam Surgical History History of carpal tunnel repair History of knee replacement History of knee replacement Status post dilation and curettage Status post discectomy Family & Social History Family History Child Age: 55 Aortic stenosis Father Diabetes mellitus Heart disease Sleep apnea Mother Age: 98 Dementia Hx of cancer of uterus Sister Age: 69 Hx of cancer of uterus Sleep apnea Social History: household members none Safety & Behavioral: Feels Safe in Current Yes Environment Been Physically Hurt or No Threatened By a Person Tobacco & Substance use: Smoking Status Never smoker alcohol intake frequency 0-2 drinks per day Substance Use Type does not use Meds Home Medications and Allergies Home Medications Medication Instructions Recorded Confirmed Type CHOLECALCIFEROL (VITAMIN D3) 2,000 iu PO Q DAY ##0 05/28/11 03/22/22 History (Vitamin D) COENZYME Q10 (COQ10) 300 mg PO Q DAY ##0 05/28/11 03/22/22 History Fish Oil (#FISH OIL) 300 iu PO Q DAY ##0 05/28/11 03/22/22 History Respironics Dreamstation CPAP #1 ea 12/16/18 03/22/22 History triamcinolone acetonide 0.1 % 1 applic topical BID PRN Itching 02/01/21 03/22/22 Rx topical cream #15 grams furosemide 20 mg tablet (Lasix) See Rx Instructions PO QAM PRN 02/06/21 03/22/22 Rx edema #180 tabs amlodipine 5 mg tablet See Rx Instructions .Route 11/29/21 03/22/22 Rx .COMPLEX #180 tabs metoprolol tartrate 75 mg tablet See Rx Instructions .Route 11/29/21 03/22/22 Rx .COMPLEX #180 tabs atorvastatin 10 mg tablet 10 mg PO DAILY #90 tabs 01/15/22 03/22/22 Rx rivaroxaban 20 mg tablet (Xarelto) 20 mg PO DAILY Irregular heartbeat 01/31/22 03/22/22 History doxycycline hyclate 20 mg tablet 20 mg PO BID 03/22/22 03/22/22 History Allergies Allergy/AdvReac Type Severity Reaction Status Date / Time No Known Drug Allergies Allergy Verified 04/05/22 14:08 Review of Systems Review of Systems Narrative: 14 systems reviewed and negative aside from what is noted in HPI Exam Vital Signs (past 8 hours): - 04/06/22 10:00 04/06/22 11:17 04/06/22 11:18 Temperature 97.8 F Pulse Rate 80 Respiratory Rate 18 29 H Blood Pressure 138/80 155/72 H Pulse Oximetry 98 Oxygen Delivery Method Room Air 04/06/22 11:18 04/06/22 11:30 04/06/22 11:30 Temperature Pulse Rate 73 73 Respiratory Rate 17 21 Blood Pressure 163/79 H Pulse Oximetry 97 98 Oxygen Delivery Method Oxygen Delivery Method Room Air Narrative Exam Narrative: GEN: no acute distress HEENT: pale mucous membranes, PERRL NECK: trachea midline, no JVD PULM: clear bilaterally, no wheezes, rhonchi rales CV: loud harsh systolic murmurj ABD: soft, nontender, nondistended, no organomegaly EXT: warm and well perfused with no edema NEURO: awake, alert, oriented with no focal deficits Objective Labs Result Diagrams: 04/06/22 10:22 04/06/22 10:22 Labs: Laboratory Results - last 24 hr 04/06/22 04/06/22 04/06/22 10:22 10:22 10:22 WBC 7.0 RBC 2.76 L Hgb 8.1 L Hct 23.5 L MCV 85.1 MCH 29.5 MCHC 34.7 RDW 14.8 Plt Count 227 Neut % (Auto) 70.8 Lymph % (Auto) 20.6 L [place] % (Auto) 6.6 Eos % (Auto) 0.6 L Baso % (Auto) 1.4 Neut # (Auto) 4900 Lymph # (Auto) 1400 [place] # (Auto) 500 Eos # (Auto) 0 Baso # (Auto) 100 PT 12.8 H INR 1.1 APTT 31 Sodium 136 L Potassium 3.2 L Chloride 98 Carbon Dioxide 25 BUN 17 Creatinine 0.67 Estimated GFR > 60 BUN/Creatinine Ratio 25.4 H Glucose 117 H Calcium 8.7 Magnesium 1.8 Total Bilirubin 0.7 AST 38 H ALT 20 Alkaline Phosphatase 71 Total Creatine Kinase 133 CK-MB (CK-2) 0.70 CK-MB (CK-2) Rel Index 0.5 L Troponin I 0.013 NT-Pro-B Natriuret Pep Total Protein 7.1 Albumin 4.1 Globulin 3.0 Albumin/Globulin Ratio 1.4 Lipase 125 04/06/22 10:22 WBC RBC Hgb Hct MCV MCH MCHC RDW Plt Count Neut % (Auto) Lymph % (Auto) [place] % (Auto) Eos % (Auto) Baso % (Auto) Neut # (Auto) Lymph # (Auto) [place] # (Auto) Eos # (Auto) Baso # (Auto) PT INR APTT Sodium Potassium Chloride Carbon Dioxide BUN Creatinine Estimated GFR BUN/Creatinine Ratio Glucose Calcium Magnesium Total Bilirubin AST ALT Alkaline Phosphatase Total Creatine Kinase CK-MB (CK-2) CK-MB (CK-2) Rel Index Troponin I NT-Pro-B Natriuret Pep 650 H Total Protein Albumin Globulin Albumin/Globulin Ratio Lipase Assessment & Plan Assessment & Plan narrative: 1. Symptomatic anemia -will admit for probable GI bleed -ordered for protonix IV BID -transfuse 1U PRBC to see if symptoms improved -check iron studies, retic, b12/folate, ldh/haptoglobin (possibly elevated secondary aortic stenosis?) -NPO at midnight -consult general surgery for consideration of EGD/colonoscopy 2. Atrial fibrillation -hold xarelto -hold beta-teena for now, will restart later today or tomorrow if bleedingis improved -keep on tele 3. Hypertension -hold off anti-hypertensives due to bleed 4. Aortic stenosis -noted on 03/2021 with mild to moderate aortic stenosis -if symptoms don't improve with transfusion will repeat ECHO CODE: Full Proxy: Seema Moody, daughter I have utilized all available resources to reconcile the patient's home medications. Time Spent With Patient Critical Care time: I spent a total of [] minutes of critical care time on this patient's care today; this time is exclusive of procedural time.
[2022-04-06 13:07] LABS: Reticulocyte Count, Percent 4.5 % (1.1-2.6)
[2022-04-06 13:08] LABS: COVID19 -Nasal RAPID Negative (Negative)
[2022-04-06 13:08] LABS: HEMOLYSIS 20 (0-50); Iron 58 ug/dL (37-170); Lactate Dehydrogenase 197 U/L (120-246)
[2022-04-06 13:18] LABS: Percent Iron Saturation 15 % (15-50); Total Iron Binding Capacity 387 ug/dL (265-497); Transferrin 291 mg/dL (206-381)
[2022-04-06] MEDS: PANTOPRAZOLE 40 MG VIAL IV ×2 (13:40→21:12)
[2022-04-06 14:18] LABS: Folate 13.1 ng/mL (2.76-20.0); Vitamin B12 895 pg/mL (239-931)
--- NOTE | 2022-04-06 17:29 | PM.CN ---
History of Present Illness Consult details Date Patient Seen: 04/06/22 Time Patient Seen: 17:00 Chief complaint: sob/weakness x2 days Reason for consult: GI bleed Requesting provider: Pierce Barrett Narrative: Ms. Mary presents to the emergency room with several days now of increasing shortness of breath and fatigue. She started to have some black, dark stools. Nothing bright red that she reports. She does take Xarelto for AFib. And since she has been on Xarelto she has not had any NSAIDs, just Tylenol on occasion for an ache or pain. Her daughter is at bedside and states that she looks pale. She has not had any emesis. She just complains of feeling ?dragging?, foggy brain and exhausted. She denies any abdominal pain she has never had symptoms like this before. She had a colonoscope [address] Yoni Hein at [facility]. He found a right-sided sessile polyp and recommended a 5 year follow-up. She has a history of heartburn but has not been taking any antacid. She has had surgery on her back knees and leg but no abdominal surgeries, nor C-sections. Meds Home Medications and Allergies Home Medications Medication Instructions Recorded Confirmed Type CHOLECALCIFEROL (VITAMIN D3) 2,000 iu PO Q DAY ##0 05/28/11 04/06/22 History (Vitamin D) COENZYME Q10 (COQ10) 300 mg PO Q DAY ##0 05/28/11 04/06/22 History Fish Oil (#FISH OIL) 300 iu PO Q DAY ##0 05/28/11 04/06/22 History Respironics Dreamstation CPAP #1 ea 12/16/18 04/06/22 History triamcinolone acetonide 0.1 % 1 applic topical BID PRN Itching 02/01/21 04/06/22 Rx topical cream #15 grams furosemide 20 mg tablet (Lasix) See Rx Instructions PO QAM PRN 02/06/21 04/06/22 Rx edema #180 tabs amlodipine 5 mg tablet See Rx Instructions .Route 11/29/21 04/06/22 Rx .COMPLEX #180 tabs metoprolol tartrate 75 mg tablet See Rx Instructions .Route 11/29/21 04/06/22 Rx .COMPLEX #180 tabs atorvastatin 10 mg tablet 10 mg PO DAILY #90 tabs 01/15/22 04/06/22 Rx rivaroxaban 20 mg tablet (Xarelto) 20 mg PO DAILY Irregular heartbeat 01/31/22 04/06/22 History doxycycline hyclate 20 mg tablet 20 mg PO BID 03/22/22 04/06/22 History Allergies Allergy/AdvReac Type Severity Reaction Status Date / Time No Known Drug Allergies Allergy Verified 04/05/22 14:08 Exam Vital Signs (past 8 hours): - 04/06/22 10:00 04/06/22 11:17 04/06/22 11:18 Temperature 97.8 F Pulse Rate 80 Respiratory Rate 18 29 H Blood Pressure 138/80 155/72 H Pulse Oximetry 98 Oxygen Delivery Method Room Air Oxygen Flow Rate 04/06/22 11:18 04/06/22 11:30 04/06/22 11:30 Temperature Pulse Rate 73 73 Respiratory Rate 17 21 Blood Pressure 163/79 H Pulse Oximetry 97 98 Oxygen Delivery Method Oxygen Flow Rate 04/06/22 12:00 04/06/22 12:30 04/06/22 14:41 Temperature 98.2 F Pulse Rate 74 74 92 H Respiratory Rate 26 H 16 Blood Pressure 159/71 H Pulse Oximetry 97 97 Oxygen Delivery Method Room Air Oxygen Flow Rate 04/06/22 14:57 04/06/22 13:02 04/06/22 13:04 Temperature 97.3 F L Pulse Rate 73 89 Respiratory Rate 16 36 H Blood Pressure 177/73 H 205/77 H Pulse Oximetry 99 Oxygen Delivery Method Oxygen Flow Rate 04/06/22 13:04 04/06/22 13:30 04/06/22 14:00 Temperature Pulse Rate 84 77 74 Respiratory Rate 26 H 50 H 22 Blood Pressure Pulse Oximetry 99 98 98 Oxygen Delivery Method Oxygen Flow Rate 04/06/22 14:01 04/06/22 14:01 04/06/22 14:30 Temperature Pulse Rate 76 76 Respiratory Rate 39 H 32 H Blood Pressure 159/71 H Pulse Oximetry 97 99 Oxygen Delivery Method Oxygen Flow Rate 04/06/22 15:00 04/06/22 15:00 04/06/22 15:36 Temperature 97.1 F L Pulse Rate 74 107 H Respiratory Rate 30 H 16 Blood Pressure 177/73 H 175/71 H Pulse Oximetry 97 98 Oxygen Delivery Method Oxygen Flow Rate 0 04/06/22 16:35 Temperature 98.0 F Pulse Rate 75 Respiratory Rate 16 Blood Pressure 149/68 H Pulse Oximetry Oxygen Delivery Method Oxygen Flow Rate Oxygen Delivery Method Room Air Oxygen Flow Rate 0 Const General: cooperative, healthy appearing, comfortable and No acute distress [facility] Head: normal to inspection Eyes General: appearance normal, both eyes and all related structures Neck Neck: normal visual inspection Resp Effort & Inspection: normal respiratory effort and able to speak in complete sentences Cardio Pulses: radial pulses present GI Palpation: soft and No tender Extrem Other: Mild bilateral lower extremity edema her right lower extremity has several scars and incisions on it. Objective Labs Result Diagrams: 04/06/22 10:22 04/06/22 10:22 Labs: Laboratory Results - last 24 hr 04/06/22 04/06/22 04/06/22 10:22 10:22 10:22 WBC 7.0 RBC 2.76 L Hgb 8.1 L Hct 23.5 L MCV 85.1 MCH 29.5 MCHC 34.7 RDW 14.8 Plt Count 227 Neut % (Auto) 70.8 Lymph % (Auto) 20.6 L [place] % (Auto) 6.6 Eos % (Auto) 0.6 L Baso % (Auto) 1.4 Neut # (Auto) 4900 Lymph # (Auto) 1400 [place] # (Auto) 500 Eos # (Auto) 0 Baso # (Auto) 100 Percent Retic PT 12.8 H INR 1.1 APTT 31 Sodium 136 L Potassium 3.2 L Chloride 98 Carbon Dioxide 25 BUN 17 Creatinine 0.67 Estimated GFR > 60 BUN/Creatinine Ratio 25.4 H Glucose 117 H Calcium 8.7 Magnesium 1.8 Iron TIBC % Saturation Transferrin Total Bilirubin 0.7 AST 38 H ALT 20 Alkaline Phosphatase 71 Lactate Dehydrogenase Total Creatine Kinase 133 CK-MB (CK-2) 0.70 CK-MB (CK-2) Rel Index 0.5 L Troponin I 0.013 NT-Pro-B Natriuret Pep Total Protein 7.1 Albumin 4.1 Globulin 3.0 Albumin/Globulin Ratio 1.4 Lipase 125 Vitamin B12 Folate SARS-CoV-2 (PCR) Blood Type Antibody Screen Crossmatch 04/06/22 04/06/22 04/06/22 10: 10:27 10:27 WBC RBC Hgb Hct MCV MCH MCHC RDW Plt Count Neut % (Auto) Lymph % (Auto) [place] % (Auto) Eos % (Auto) Baso % (Auto) Neut # (Auto) Lymph # (Auto) [place] # (Auto) Eos # (Auto) Baso # (Auto) Percent Retic 4.5 H PT INR APTT Sodium Potassium Chloride Carbon Dioxide BUN Creatinine Estimated GFR BUN/Creatinine Ratio Glucose Calcium Magnesium Iron 58 TIBC 387 % Saturation 15 Transferrin 291 Total Bilirubin AST ALT Alkaline Phosphatase Lactate Dehydrogenase Total Creatine Kinase CK-MB (CK-2) CK-MB (CK-2) Rel Index Troponin I NT-Pro-B Natriuret Pep 650 H Total Protein Albumin Globulin Albumin/Globulin Ratio Lipase Vitamin B12 Folate SARS-CoV-2 (PCR) Blood Type Antibody Screen Crossmatch 04/06/22 04/06/22 04/06/22 10:27 11:41 12:33 WBC RBC Hgb Hct MCV MCH MCHC RDW Plt Count Neut % (Auto) Lymph % (Auto) [place] % (Auto) Eos % (Auto) Baso % (Auto) Neut # (Auto) Lymph # (Auto) [place] # (Auto) Eos # (Auto) Baso # (Auto) Percent Retic PT INR APTT Sodium Potassium Chloride Carbon Dioxide BUN Creatinine Estimated GFR BUN/Creatinine Ratio Glucose Calcium Magnesium Iron TIBC % Saturation Transferrin Total Bilirubin AST ALT Alkaline Phosphatase Lactate Dehydrogenase 197 Total Creatine Kinase CK-MB (CK-2) CK-MB (CK-2) Rel Index Troponin I NT-Pro-B Natriuret Pep Total Protein Albumin Globulin Albumin/Globulin Ratio Lipase Vitamin B12 895 Folate 13.1 SARS-CoV-2 (PCR) Negative Blood Type O Positive Antibody Screen Negative Crossmatch See Detail COUNTS INCLUDE 234 BEDS AT THE [facility] Medical History Atrial fib/flutter, transient Essential hypertension (01/24/17) Hypertension Insomnia due to medical condition Mixed hyperlipidemia (01/24/17) Nonrheumatic aortic (valve) insufficiency (~2011) Nonrheumatic mitral (valve) insufficiency (~2011) Obesity (BMI 30-39.9) Obstructive sleep apnea Palpitations Skin lesions, generalized Well adult exam Surgical History History of carpal tunnel repair History of knee replacement History of knee replacement Status post dilation and curettage Status post discectomy Family History Child Age: 55 Aortic stenosis Father Diabetes mellitus Heart disease Sleep apnea Mother Age: 98 Dementia Hx of cancer of uterus Sister Age: 69 Hx of cancer of uterus Sleep apnea Social History household members: none Tobacco & Substance Use Smoking Status: Never smoker alcohol intake: current Assessment & Plan Assessment and plan (1) Acute GI bleeding: Status: Acute Assessment & Plan narrative: Patient is hemodynamically stable but with a significant hemoglobin drop from 13 to 8 signifying a GI bleed. Based on her history it is not really clear if this would be an upper or lower GI bleed. Given that there has been no bright red blood and history of GERD I think it makes sense to start an investigation with an upper GI scope. I did discuss with her the options of starting a colonoscopy prep at [facility] for a double scope tomorrow. However I I think that it is late enough that it makes sense to check the upper scope if there is any etiology identified then there would be no need for another colonoscopy given that she has had screening recently. If nothing that explains her hemoglobin drop is seen with upper scope then I would prep her for colonoscopy and proceed. She agrees with the plan. I discussed risks benefits and alternatives to EGD she understands that these are including but not limited to problems with anesthesia or injury to structures requiring further surgery or hospitalization. She would like to proceed. Time Spent With Patient Critical Care time: I spent a total of [] minutes of critical care time on this patient's care today; this time is exclusive of procedural time.
[2022-04-07] VITALS (15 sets, daily range): BP systolic 117–186; BP diastolic 53–80; PULSE 60–91; RESP 16–28; TEMP 36.1–36.9; O2SAT 92–999; BMI 36.3
[2022-04-07 03:46] LABS: Haptoglobin 153 mg/dL (42-346)
[2022-04-07 05:26] LABS: Add Manual Diff / Slide Review NO; Basophils Absolute Auto 100 /uL (0-100); Basophils Percent Auto 1.1 % (0-2); Eosinophils Absolute Auto 100 /uL (0-450); Eosinophils Percent Auto 1.8 % (2-4); Hematocrit 23.7 % (36-46); Hemoglobin 8.3 g/dL (12.0-16.0); Lymphocytes Absolute Auto 2000 /uL (1100-4500); Lymphocytes Percent Auto 33.1 % (25-40); Mean Corpuscular HGB Conc 34.8 % (30-36); Mean Corpuscular Hemoglobin 29.7 PG (26-34); Mean Corpuscular Volume 85.2 fL (80-100); Monocytes Absolute Auto 500 /uL (0-900); Monocytes Percent Auto 8.1 % (3-14); Neutrophils Absolute Auto 3300 /uL (1500-7000); Neutrophils Percent Auto 55.9 % (50-75); Platelet Count 217 X10^3/uL (150-400); Red Blood Cell Count 2.78 X10^6/uL (4.0-5.2); Red Cell Distribution Width 14.3 % (11.6-14.8)
[2022-04-07 05:34] LABS: BUN Creatinine Ratio 13.9 (6-22); Blood Urea Nitrogen 10 mg/dL (7-17); Calcium 8.2 mg/dL (8.4-10.2); Carbon Dioxide 26 mmol/L (22-32); Chloride 102 mmol/L (98-107); Estimated Glomerular Filt Rate > 60 mL/min (>60); Glucose 95 mg/dL (80-110); HEMOLYSIS < 15 (0-50); Sodium 135 mmol/L (137-145)
--- NOTE | 2022-04-07 09:19 | CM.DANOTE ---
Initial DCP Assessment Note Pt is a 77 yo female, resident of [place], arrives with weakness x2 days and admitted observation for w/u of GI bleed with EGD scheduled for today PCP: Marco Slater Payer: CHRISTINE/[place] Reviewed chart, met w/patient this morning to introduce self and role. Patient explains she lives alone, has supportive family, and navigates independently in her home. Patient appreciative for the visit and anticipates no needs upon discharge No barriers identified at this time to patient's safe discharge home w/family to assist; close outpatient f/u recommended. CM team will plan to follow closely as medical POC unfolds LAURIE Richard Discharge Planning/Care Management CM Discharge Assessment Start: 04/07/22 09:16 Freq: Status: Active Protocol: Document 04/07/22 09:16 RODY (Rec: 04/07/22 09:18 RODY [id number]) Discharge Planning Assessment Assigned Chips Screen Tender LAURIE Dickens DPOA/Assigned Designee Name Seema Moody dtr Contact Information [phone] Advance Directives? Yes Advance Directives on File No History Provided By Patient,Medical Record Prior Living Arrangements House Household Members none Type of transporation used prior to Drives own vehicle admit Independent with ADL's Yes Is patient alert and oriented? Yes Caregiver for Another No Barriers to Discharge No Comment Home w/family and outpatient follow up is likely Discharge Plan Home Transportation Arrangement Family Referrals Initiated None needed
[2022-04-07] MEDS: POTASSIUM CHLORIDE IN WATER 10 MEQ/100 ML PIGGYBACK 100 MEQ IV (09:53)
[2022-04-07] MEDS: METOPROLOL IR 25 MG TABLET 75 MG PO ×2 (09:54→20:54)
[2022-04-07] MEDS: LACTATED RINGERS 1,000 ML 42 ML IV (10:48)
--- NOTE | 2022-04-07 10:51 | PM.PREOP ---
Pre-operative Note COVID-19 COVID-19 status: Negative Result date/Date tested (Pos, Neg/Pending): 04/06/22 Interval Note History & Physical reviewed/Exam performed by Physician: Yes Changes to H&P: No ASA Class (for procedural sedation): II
--- NOTE | 2022-04-07 11:20 | PM.OP.EGD ---
Operative Date/Time/Diagnoses Date of procedure: 04/07/22 Time of procedure: 11:20 Pre-op diagnosis: Anemia Post-op diagnosis: same Procedure & Clinicians Study performed: Esophagogastroduodenoscopy Same procedure as scheduled: Yes Surgeon: Alex Clark Procedure Notes Procedure in detail: Surgeon: Alex Clark MD Anesthesia: Dr. Ambrose A timeout was performed. A bite blocked was placed. The patient was positioned in the supine position. Sedation was administered by Dr. Ambrose. The endoscope was inserted through the bite block and passed through the esophagus and into the stomach however the patient started to desaturate and the scope was removed to allow recovery of her oxygen saturation. Dr. Ambrose inserted a nasopharyngeal tube and once her saturations were appropriate the scope was reinserted into the stomach. There was now some blood in her esophagus from her nasopharynx. The stomach was briefly inspected and no obvious source of upper GI bleeding was seen however the procedure had to be aborted because she started to desaturate again. The scope was withdrawn. The patient was awakened and brought to recovery. The patient will be scheduled for an upper and lower endoscopy tomorrow with general anesthesia. Post-procedure Disposition: PACU
[2022-04-07] MEDS: ALBUTEROL/IPRATROPIUM 3 ML AMPUL INH (11:27)
--- NOTE | 2022-04-07 12:55 | PC.NURSE ---
0945: left floor for EGD. 1230: returned from PACU, per bedside report patient unable to complete EGD, due to reactive airway. tentative plan for upper and lower GI scopes tomorrow. as of now is still NPO, ice chips are ok. patient requesting lozenges. order received. restarted KCL, receiving 2/4 bags as ordered. reported earlier stinging and pain to LFA PIV. NS infusing concurrently w/ Kcl to dilute and decrease pain/discomfort. ice pack placed during IV infusion. toileting w/o problems, no stool noted. awaiting word from Dr Clark if patient is to be NPO from now til test in AM, or if she is allowed to eat/drink before then. call light w/in reach.
[2022-04-07 13:06] LABS: Hematocrit 25.9 % (36-46)
[2022-04-07] MEDS: PEG3350/SOD SULF,BICARB,CL/KCL 4,000 ML SOLUTION 4000 ML PO (14:42)
[2022-04-07] MEDS: POTASSIUM CHLORIDE 20 MEQ TAB 40 MEQ PO (14:42)
--- NOTE | 2022-04-07 17:04 | P.PN_ITS ---
Subjective Subjective Date Patient Seen: 04/07/22 Interval history: 77W with PMH atrial fibrillation on xarelto, aortic stenosis, HTN, HL presented with complaints of dyspnea and dark stools for the past week. She was found to be anemic with a 8.1. Patient had EGD today which was terminated early due to drop in O2 sats but no obvious bleeding or lesion noted. She is getting prep for colonoscopy as well as repeat EGD tomorrow. She got 1 unit PRBC with hemoglobin going up to 9.0. S he has no complaints. Exam Vital Signs (past 8 hours): - 04/07/22 09:20 04/07/22 10:46 04/07/22 11:27 Temperature 97.0 F L 97.8 F 98.3 F Pulse Rate 89 69 83 Respiratory Rate 16 16 28 H Blood Pressure 167/64 H 186/69 H 117/76 Pulse Oximetry 97 95 99 Oxygen Delivery Method Room Air Aerosol Mask Oxygen Flow Rate 10 04/07/22 11:27 04/07/22 11:32 04/07/22 11:42 Temperature 98.2 F 98.0 F Pulse Rate 91 H 82 76 Respiratory Rate 28 H 16 21 Blood Pressure 117/76 141/71 H 148/79 H Pulse Oximetry 999 H 98 Oxygen Delivery Method Aerosol Mask Aerosol Mask Room Air Oxygen Flow Rate 10 04/07/22 11:57 04/07/22 11:58 04/07/22 13:00 Temperature 98.0 F 97.6 F Pulse Rate 73 72 70 Respiratory Rate 18 21 16 Blood Pressure 146/79 H 157/80 H 152/68 H Pulse Oximetry 96 96 92 Oxygen Delivery Method Room Air Room Air Oxygen Flow Rate Oxygen Delivery Method Room Air Oxygen Flow Rate 10 Narrative Exam Narrative: General: Alert, no distress seen after EGD Lungs: Clear Heart: Irregularly irregular Abdomen: Soft Extremities: No edema Neuro: Normal affect and speech Objective Labs Result Diagrams: 04/07/22 12:55 04/07/22 04:52 Labs: Laboratory Results - last 24 hr 04/06/22 04/07/22 04/07/22 10:27 04:52 04:52 WBC 6.0 RBC 2.78 L Hgb 8.3 L Hct 23.7 L MCV 85.2 MCH 29.7 MCHC 34.8 RDW 14.3 Plt Count 217 Neut % (Auto) 55.9 Lymph % (Auto) 33.1 [place] % (Auto) 8.1 Eos % (Auto) 1.8 L Baso % (Auto) 1.1 Neut # (Auto) 3300 Lymph # (Auto) 2000 [place] # (Auto) 500 Eos # (Auto) 100 Baso # (Auto) 100 Haptoglobin 153 Sodium 135 L Potassium 3.0 L Chloride 102 Carbon Dioxide 26 BUN 10 Creatinine 0.72 Estimated GFR > 60 BUN/Creatinine Ratio 13.9 Glucose 95 Calcium 8.2 L 04/07/22 12:55 WBC RBC Hgb 9.0 L Hct 25.9 L MCV MCH MCHC RDW Plt Count Neut % (Auto) Lymph % (Auto) [place] % (Auto) Eos % (Auto) Baso % (Auto) Neut # (Auto) Lymph # (Auto) [place] # (Auto) Eos # (Auto) Baso # (Auto) Haptoglobin Sodium Potassium Chloride Carbon Dioxide BUN Creatinine Estimated GFR BUN/Creatinine Ratio Glucose Calcium [facility] Medical History Atrial fib/flutter, transient Essential hypertension (01/24/17) Hypertension Insomnia due to medical condition Mixed hyperlipidemia (01/24/17) Nonrheumatic aortic (valve) insufficiency (~2011) Nonrheumatic mitral (valve) insufficiency (~2011) Obesity (BMI 30-39.9) Obstructive sleep apnea Palpitations Skin lesions, generalized Well adult exam Surgical History History of carpal tunnel repair History of knee replacement History of knee replacement Status post dilation and curettage Status post discectomy Family History Child Age: 55 Aortic stenosis Father Diabetes mellitus Heart disease Sleep apnea Mother Age: 98 Dementia Hx of cancer of uterus Sister Age: 69 Hx of cancer of uterus Sleep apnea Social History household members: children and none Smoking Status: Never smoker alcohol intake: current Assessment & Plan Assessment & Plan narrative: 1. Acute blood loss anemia due to GI I bleed -patient with report of recent dark stools -transfused 1 unit PRBC with hemoglobin stable since transfusion -normal iron studies, B12, LDH -NPO at midnight for colonoscopy and repeat EGD -a.m. labs 2. Atrial fibrillation -hold xarelto -keep on tele 3. Hypertension -back on hypertensives since blood pressure has been stable 4. Aortic stenosis -noted on 03/2021 with mild to moderate aortic stenosis -if symptoms don't improve with transfusion will repeat ECHO 5. Hypokalemia -replaced potassium -recheck in a.m. CODE: Full Proxy: Seema Fransisco, daughter Time Spent With Patient Critical Care time: I spent a total of [] minutes of critical care time on this patient's care today; this time is exclusive of procedural time. Quality VTE Deep Vein Thrombosis/Pulmonary Embolism Present on Admission: No
--- NOTE | 2022-04-07 19:45 | PC.NURSE ---
npo x ice chips for upper and lower scopes tomorrow. tolerated goLytely , started at 1330, finished at 1800. bowel movements are liquid, not quite clear yet. IV saline locked, independant BRP. report to noc.
[2022-04-07] MEDS: PANTOPRAZOLE 40 MG VIAL IV (20:54)
[2022-04-07] MEDS: AMLODIPINE 5 MG TABLET PO (20:54)
[2022-04-08] VITALS (14 sets, daily range): BP systolic 146–177; BP diastolic 46–80; PULSE 60–95; RESP 14–20; TEMP 36.1–37; O2SAT 94–100; BMI 36.3
[2022-04-08 05:10] LABS: Add Manual Diff / Slide Review NO; Basophils Absolute Auto 100 /uL (0-100); Eosinophils Absolute Auto 100 /uL (0-450); Eosinophils Percent Auto 1.4 % (2-4); Hematocrit 23.4 % (36-46); Hemoglobin 7.9 g/dL (12.0-16.0); Lymphocytes Absolute Auto 1700 /uL (1100-4500); Lymphocytes Percent Auto 26.5 % (25-40); Mean Corpuscular HGB Conc 33.6 % (30-36); Mean Corpuscular Hemoglobin 29.1 PG (26-34); Mean Corpuscular Volume 86.6 fL (80-100); Monocytes Absolute Auto 500 /uL (0-900); Monocytes Percent Auto 7.8 % (3-14); Neutrophils Absolute Auto 4200 /uL (1500-7000); Neutrophils Percent Auto 63.3 % (50-75); Platelet Count 219 X10^3/uL (150-400); Red Blood Cell Count 2.71 X10^6/uL (4.0-5.2); White Blood Cell Count 6.6 X10^3/uL (4.5-11.0)
[2022-04-08 05:51] LABS: HEMOLYSIS < 15 (0-50); Sodium 139 mmol/L (137-145)
[2022-04-08 05:52] LABS: BUN Creatinine Ratio 15.2 (6-22); Blood Urea Nitrogen 12 mg/dL (7-17); Calcium 8.4 mg/dL (8.4-10.2); Carbon Dioxide 26 mmol/L (22-32); Chloride 106 mmol/L (98-107); Estimated Glomerular Filt Rate > 60 mL/min (>60); Glucose 93 mg/dL (80-110); Potassium 3.3 mmol/L (3.4-5.1)
[2022-04-08] MEDS: LACTATED RINGERS 1,000 ML 120 ML IV (14:26)
[2022-04-08] MEDS: POTASSIUM CHLORIDE 20 MEQ TAB 40 MEQ PO ×3 (14:26→18:18)
[2022-04-08] MEDS: METOPROLOL IR 25 MG TABLET 75 MG PO ×2 (14:26→20:15)
--- NOTE | 2022-04-08 14:41 | PM.PN.1 ---
Subjective Subjective Date Patient Seen: 04/08/22 Interval history: 77W with PMH atrial fibrillation on xarelto, aortic stenosis, HTN, HL presented with complaints of dyspnea and dark stools for the past week. She was found to be anemic, h/h declined to 7.9 this AM. She is pending a repeat scope today. She reports her stools are clear today after prep, no melena or hematochezia. She denies chest pain, shortness of breath, or abdominal pain. Exam Vital Signs (past 8 hours): - 04/08/22 08:00 04/08/22 09:21 04/08/22 12:00 Temperature 97.2 F L 97.4 F L Pulse Rate 66 71 Respiratory Rate 17 14 16 Blood Pressure 157/54 H 164/54 H Pulse Oximetry 94 100 97 Oxygen Flow Rate 0 Oxygen Delivery Method Room Air Oxygen Flow Rate 0 Narrative Exam Narrative: General:? Patient is well developed and well nourished, in no distress at this time. HEENT:? Normocephalic, atraumatic, extraocular muscles intact, oral pharynx is clear and mucous membranes are moist. Neck: supple and symmetric, trachea is midline. Chest:? Normal AP diameter and contour without kyphoscoliosis, no tachypnea, equal chest rise bilaterally. Lungs:? CTA b/l no wheezing rhonchi or rales. Cardio:?RRR no m/r/g. Abdomen: S NT ND. Musculoskeletal:? Muscle strength and tone are equal within normal limits, no deformity. Extremities: No edema or joint effusions. No cyanosis or clubbing. Skin:? Pale,? Warm to touch,dry and intact without rashes, ulcerations or petechiae.? Neuro:? Alert and orientated x3,? sensation to touch intact in all extremities, no gross deficits noted of cranial nerves. Psych:? Patient has a well-kept appearance, appropriate affect, mental status attitude thought context and judgment are appropriate for age. Objective Labs Result Diagrams: 04/08/22 04:57 04/08/22 04:57 Labs: Laboratory Results - last 24 hr 04/08/22 04/08/22 04:57 04:57 WBC 6.6 RBC 2.71 L Hgb 7.9 L Hct 23.4 L MCV 86.6 MCH 29.1 MCHC 33.6 RDW 15.0 H Plt Count 219 Neut % (Auto) 63.3 Lymph % (Auto) 26.5 Garden % (Auto) 7.8 Eos % (Auto) 1.4 L Baso % (Auto) 1.0 Neut # (Auto) 4200 Lymph # (Auto) 1700 Garden # (Auto) 500 Eos # (Auto) 100 Baso # (Auto) 100 Sodium 139 Potassium 3.3 L Chloride 106 Carbon Dioxide 26 BUN 12 Creatinine 0.79 Estimated GFR > 60 BUN/Creatinine Ratio 15.2 Glucose 93 Calcium 8.4 [facility] Medical History Atrial fib/flutter, transient Essential hypertension (01/24/17) Hypertension Insomnia due to medical condition Mixed hyperlipidemia (01/24/17) Nonrheumatic aortic (valve) insufficiency (~2011) Nonrheumatic mitral (valve) insufficiency (~2011) Obesity (BMI 30-39.9) Obstructive sleep apnea Palpitations Skin lesions, generalized Well adult exam Surgical History History of carpal tunnel repair History of knee replacement History of knee replacement Status post dilation and curettage Status post discectomy Family History Child Age: 55 Aortic stenosis Father Diabetes mellitus Heart disease Sleep apnea Mother Age: 98 Dementia Hx of cancer of uterus Sister Age: 69 Hx of cancer of uterus Sleep apnea Social History household members: children and none Smoking Status: Never smoker alcohol intake: current Assessment & Plan Assessment & Plan narrative: 1. Acute blood loss anemia due to GI bleed -patient with report of recent dark stools, on xarelto for afib which has been held. -transfused 1 unit PRBC, h/h declined slightly again to 7.9 but stools improving. Pending repeat EGD and c-scope. -normal iron studies, B12, LDH 2. Atrial fibrillation, paroxysmal -hold xarelto -can discontinue tele if no afib with RVR. 3. Hypertension -back on hypertensives since blood pressure has been stable 4. Aortic stenosis -noted on 03/2021 with mild to moderate aortic stenosis -no current need for TTE at this time. 5. Hypokalemia -replaced potassium -improved to 3.3 with repletion but will continue to follow and replete as needed. CODE: Full Proxy: Seema Orrell, daughter Time Spent With Patient Critical Care time: I spent a total of [] minutes of critical care time on this patient's care today; this time is exclusive of procedural time. Quality VTE Deep Vein Thrombosis/Pulmonary Embolism Present on Admission: No
[2022-04-08 15:33] LABS: Hematocrit 25.8 % (36-46); Hemoglobin 8.8 g/dL (12.0-16.0)
[2022-04-08] MEDS: ALBUTEROL 2.5 MG/3 ML NEB (ADULT) INH (15:35)
--- NOTE | 2022-04-08 15:47 | PC.NURSE ---
Addendum entered by Sarahi Rodriguez R.N. 04/08/22 19:05: returned from procedure, awake and talking. source of GIB was not found, 1 polyp was removed, no evidence of active bleed. h/h drawn prior to procedure shows improvement: 8.8/25.8. call to surgery to inquire about NPO status. no definitive answer yet, awaiting Dr Larose response. patient is enjoying visit from daughter and sister. Original Note: completed GoLytely yesterday evening. stools if any are clear. NPO since yesterday morning. continues w/ LR at 120cc/hour... PO kcl and metoprolol given per Dr Clark. 1515: left floor for procedure.
--- NOTE | 2022-04-08 16:37 | PM.OP.EC ---
Operative Date/Time/Diagnoses Date of procedure: 04/08/22 Time of procedure: 16:37 Pre-op diagnosis: Rectal bleeding Post-op diagnosis: same Procedure & Clinicians Study performed: EGD and colonoscopy Same procedure as scheduled: Yes Surgeon: Alex Clark Procedure Notes Procedure in detail: Surgeon: Alex Clark MD Anesthesia: General endotracheal anesthesia by Dr. Ambrose Procedure in detail: A timeout was performed. A bite blocked was placed and monitors were attached to the patient. The patient was positioned in the supine position. Anesthesia was administered by Dr. Ambrose. Once the patient was sedated the endoscope was inserted through the bite block and passed through the esophagus and stomach and into the duodenum. No abnormalities were seen in the duodenum or duodenal bulb. We then withdrew the scope into the stomach. No abnormalities were seen. The endoscope was retroflexed and no abnormalities were seen in the proximal stomach and no hiatal hernia was seen. The endoscope was straightned and withdrawn into the esophagus. No other abnormalities were seen Findings: Normal EGD Next we repositioned the patient for a colonoscopy. A digital rectal exam was performed and was normal. The colonoscope was inserted and advanced to the cecum. The prep was poor and we could not confirm the location of the cecum. No cecum time was recorded. The scope was slowly withdrawn over greater than 6 minutes. There was no evidence of active or recent bleeding. There was a 7 mm polyp in the ascending colon that was removed with cold snare. No other abnormalities were seen in the colon. The scope was retroflexed in the rectum and no abnormalities were noted. Findings: 7 mm cecal polyp but no source of rectal bleeding identified EBL: 5 mL Scope withdrawal time: Not applicable Anesthesia time: 31 minutes Post-procedure Disposition: PACU
--- NOTE | 2022-04-08 17:31 | SUR.PHASEI ---
Transferred to room 219 in stable condition. Received in room by MAYRA Pretty.
[2022-04-08] MEDS: BENZOCAINE/MENTHOL 1 LOZ PKT 1 EACH PO (18:11)
[2022-04-08] MEDS: PANTOPRAZOLE 40 MG VIAL IV (20:15)
[2022-04-08] MEDS: AMLODIPINE 5 MG TABLET PO (20:15)
--- NOTE | 2022-04-08 22:52 | PC.NURSE ---
Patient is alert and oriented. Breath sounds CTA with RA sat of 96%; does report some SOB with exertion. HRR w/murmur. BP elevated at 153/46. Denies nausea. BT present and is passing flatus; denies abdominal pain. Voiding and denies dysuria, frequency or urgency. Is able to turn herself in bed and up in room independently; declined to walk in chavez. Bilateral calf SCD's applied. Denies pain. Fall risk score is moderate but patient is steady on feet so alarm is not in use at this time.
[2022-04-09 01:52] VITALS: BP 135/52; PULSE 70; RESP 14; TEMP 37; O2SAT 91
[2022-04-09 04:30] VITALS: BP 129/53; PULSE 63; RESP 14; TEMP 36.6; O2SAT 91
[2022-04-09 05:40] LABS: BUN Creatinine Ratio 21.4 (6-22); Blood Urea Nitrogen 18 mg/dL (7-17); Calcium 8.3 mg/dL (8.4-10.2); Carbon Dioxide 22 mmol/L (22-32); Chloride 106 mmol/L (98-107); Estimated Glomerular Filt Rate > 60 mL/min (>60); Glucose 132 mg/dL (80-110); HEMOLYSIS < 15 (0-50); Potassium 4.3 mmol/L (3.4-5.1); Sodium 136 mmol/L (137-145)
[2022-04-09 05:42] LABS: Add Manual Diff / Slide Review NO; Basophils Absolute Auto 0 /uL (0-100); Basophils Percent Auto 0.2 % (0-2); Eosinophils Absolute Auto 0 /uL (0-450); Hemoglobin 8.1 g/dL (12.0-16.0); Lymphocytes Absolute Auto 800 /uL (1100-4500); Lymphocytes Percent Auto 12.5 % (25-40); Mean Corpuscular HGB Conc 33.7 % (30-36); Mean Corpuscular Hemoglobin 29.5 PG (26-34); Mean Corpuscular Volume 87.5 fL (80-100); Monocytes Absolute Auto 100 /uL (0-900); Monocytes Percent Auto 1.2 % (3-14); Neutrophils Absolute Auto 5200 /uL (1500-7000); Neutrophils Percent Auto 86.1 % (50-75); Platelet Count 221 X10^3/uL (150-400); Red Blood Cell Count 2.74 X10^6/uL (4.0-5.2)
[2022-04-09] MEDS: LACTATED RINGERS 1,000 ML 120 ML IV (05:56)
[2022-04-09 09:00] VITALS: BP 132/48; PULSE 75; RESP 16; TEMP 36.2; O2SAT 93
[2022-04-09] MEDS: PANTOPRAZOLE 40 MG VIAL IV (09:12)
[2022-04-09] MEDS: AMLODIPINE 5 MG TABLET PO (09:15)
[2022-04-09] MEDS: METOPROLOL IR 25 MG TABLET 75 MG PO (09:15)
[2022-04-09] MEDS: ATORVASTATIN 20 MG TABLET 10 MG PO (09:15)
--- NOTE | 2022-04-09 10:37 | PM.DS.1 ---
History of Present Illness History of Present Illness Date Patient Seen: 04/09/22 Time Patient Seen: 10:38 Chief complaint: sob/weakness x2 days Narrative: Per Dr. Barrett, Ms. Mary is a 77W with PMH atrial fibrillation on xarelto, aortic stenosis, HTN, HL who presents to the hospital with shortness of breath. She notes about a week of worsening fatigue and shortness of breath. At about the same time she noted darker stools. No BRBPR, no abdominal pain, no vomiting blood. No alcohol use, she does not use any nsaids. She has had a colonoscopy about 3 years ago which had a polyp. She states she has never had any history of GI bleeding. She has especially noted over the last 2-3 days she has had worsening shortness of breath especially with exertion. She has not had any cough, fevers/chills, chest pain, lower extremity edema, weight loss or weight gain. She denies any history of anemia In the ED workup was done, vitals notable for no tachycardia and normal blood pressure, no tachypnea, and normal O2 sats on room air. Labs notable for WBC 7.0, hgb 8.1, plts 227. Creatinine 0.67. INR 1.1. Trop 0.013. BNP 650. Chest xray showed no acute process. She was ordered for blood and protonix and admitted for further treatment. Rectal done in ED by physician was noted for guaiac positive stool. Discharge Providers Provider Date of admission: 04/06/22 12:05 Discharge Date: 04/09/22 Primary care physician: Marco Slater DO Consults: 04/06/22 12:57 Consult to General Surgery Routine Comment: Consulting Provider: Mary Flores Reason for consultation: gi bleed Has provider been notified: Yes Discharge provider: Stone Eubakns DO Summary Hospital Course Discharge Diagnosis: 1. Acute blood loss anemia due to GI bleed 2. Atrial fibrillation, paroxysmal 3. Hypertension 4. Aortic stenosis 5.? Hypokalemia Hospital Course: This is a 77-year-old female with a past medical history atrial fibrillation on chronic anticoagulation, hypertension, aortic stenosis who presented with melena and acute blood loss anemia. Initially Hg remained around 8 despite 1 U PRBC transfusion, then increased to 9. Hg remained fairly stable between 8-9 without additional transfusion after this. She had initial colonoscopy but there was poor prep. Repeat EGD and colonoscopy was performed without an identifiable source, only a 7 mm polyp was found on colonoscopy. Her xarelto was held and her bowel movements were no longer bloody. She was discharged home given stable h/h and she was tolerating a diet without melena. Further outpatient evaluation is recommended starting with her PCP for possible referral for capsule endoscopy given negative results above. No other changes are recommended at the time of discharge. Time Spent with Patient Time spent: Greater than 30 minutes Exam Vital Signs (past 8 hours): - 04/09/22 04:30 04/09/22 04:30 04/09/22 09:00 Temperature 97.9 F 97.2 F L Pulse Rate 63 75 Respiratory Rate 14 16 Blood Pressure 129/53 L 132/48 L Pulse Oximetry 91 91 93 Oxygen Delivery Method CPAP Oxygen Flow Rate 0 0 0 Oxygen Delivery Method CPAP Oxygen Flow Rate 0 Narrative Exam Narrative: General:? Patient is well developed and well nourished, in no distress at this time. HEENT:? Normocephalic, atraumatic, extraocular muscles intact, oral pharynx is clear and mucous membranes are moist. Neck: supple and symmetric, trachea is midline. Chest:? Normal AP diameter and contour without kyphoscoliosis, no tachypnea, equal chest rise bilaterally. Lungs:? CTA b/l no wheezing rhonchi or rales. Cardio:?RRR no m/r/g. Abdomen: S NT ND. Musculoskeletal:? Muscle strength and tone are equal within normal limits, no deformity. Extremities: No edema or joint effusions. No cyanosis or clubbing. Skin:? Pale,? Warm to touch,dry and intact without rashes, ulcerations or petechiae.? Neuro:? Alert and orientated x3,? sensation to touch intact in all extremities, no gross deficits noted of cranial nerves. Psych:? Patient has a well-kept appearance, appropriate affect, mental status attitude thought context and judgment are appropriate for age. Objective Labs Result Diagrams: 04/09/22 05:07 04/09/22 05:07 Labs: Laboratory Results - last 24 hr 04/08/22 04/09/22 04/09/22 15:15 05:07 05:07 WBC 6.0 RBC 2.74 L Hgb 8.8 L 8.1 L Hct 25.8 L 24.0 L MCV 87.5 MCH 29.5 MCHC 33.7 RDW 15.0 H Plt Count 221 Neut % (Auto) 86.1 H D Lymph % (Auto) 12.5 L Mathews % (Auto) 1.2 L Eos % (Auto) 0.0 L Baso % (Auto) 0.2 Neut # (Auto) 5200 Lymph # (Auto) 800 L Mathews # (Auto) 100 Eos # (Auto) 0 Baso # (Auto) 0 Sodium 136 L Potassium 4.3 Chloride 106 Carbon Dioxide 22 BUN 18 H Creatinine 0.84 Estimated GFR > 60 BUN/Creatinine Ratio 21.4 Glucose 132 H Calcium 8.3 L PFSH Medical History Atrial fib/flutter, transient Essential hypertension (01/24/17) Hypertension Insomnia due to medical condition Mixed hyperlipidemia (01/24/17) Nonrheumatic aortic (valve) insufficiency (~2011) Nonrheumatic mitral (valve) insufficiency (~2011) Obesity (BMI 30-39.9) Obstructive sleep apnea Palpitations Skin lesions, generalized Well adult exam Surgical History History of carpal tunnel repair History of knee replacement History of knee replacement Status post dilation and curettage Status post discectomy Family History Child Age: 55 Aortic stenosis Father Diabetes mellitus Heart disease Sleep apnea Mother Age: 98 Dementia Hx of cancer of uterus Sister Age: 69 Hx of cancer of uterus Sleep apnea Social History household members: none Smoking Status: Never smoker alcohol intake: current Discharge Plan Discharge Plan Patient Disposition: Home Provider Discharge Comment: You were admitted to the hospital with gastrointestinal bleeding. You should continue pantoprazole for now given no probable source and low risks of adverse effects. Recommend outpatient follow up with PCP for referral for possible capsule/pill endoscopy. For now please stop taking your blood thinner until a source is possibly found. No other changes are necessary to your home medications. Nursing Discharge Comment: GI bleed: return to ER/ call 911 if symptoms that brought you to the hospital worsen or return. call your primary MD if any questions. continue the protonix /omeprazole as instructed by MD. follow up w/ your primary doctor w/in 5-7 days of d/c date (today) regarding xeralto. not taking the xeralto leaves you at risk for a blood clot from your Atrial fibrillation. keep in mind that your hematocrit and hemoglobin are low & this could lead to dizziness and or fatigue. please take it easy when you get home, move slowly, especially when moving from a laying position into sitting then standing. put your feet flat on the floor and wait about 20 seconds before standing, and pay attention to how you feel... monitor for dizziness and move slowly. it is good practice to check your blood pressure and pulse twice a day x 1 week after leaving the hospital.. check b/p and pulse in the morning after you wake and also at night before bed. keep a log of these vital signs and bring that to your next doctor appt for review. it was a pleasure to be your nurse this past few days, i enjoyed meeting and talking w/ you. please take good care of yourself & enjoy the rest of your day! Discharge orders & Medications Prescriptions: New pantoprazole 40 mg tablet,delayed release (DR/EC) 40 mg PO DAILY 30 Days Qty: 30 0RF Continued Fish Oil (#FISH OIL) 300 iu PO Q DAY Qty: 0 CHOLECALCIFEROL (VITAMIN D3) (Vitamin D) 2,000 iu PO Q DAY Qty: 0 COENZYME Q10 (COQ10) 300 mg PO Q DAY Qty: 0 triamcinolone acetonide 0.1 % cream 1 applic Topical BID PRN (Reason: Itching) Qty: 15 3RF furosemide [Lasix] 20 mg tablet See Rx Instructions PO QAM PRN (Reason: edema) Qty: 180 3RF Dose Instruction: 1-2 tabs as needed for swelling PO QAM; Rx Instructions: 1-2 tabs as needed for swelling PO every morning PRN; amlodipine 5 mg tablet See Rx Instructions .ROUTE .COMPLEX Qty: 180 0RF Dose Instruction: TAKE 1 TABLET TWICE DAILY Rx Instructions: TAKE 1 TABLET TWICE DAILY metoprolol tartrate 75 mg tablet See Rx Instructions .ROUTE .COMPLEX Qty: 180 0RF Dose Instruction: TAKE 1 TABLET TWICE DAILY Rx Instructions: TAKE 1 TABLET TWICE DAILY atorvastatin 10 mg tablet 10 mg PO DAILY Qty: 90 3RF doxycycline hyclate 20 mg tablet 20 mg PO BID (DME) Respironics Dreamstation CPAP Qty: 1 Label Comments: Pressure: 6-12 cmH2O DME: [facility] Rx Instructions: As directed Discontinued Xarelto 20 mg tablet 20 mg PO DAILY Label Comments: To prevent stroke Follow up/Referrals: Marco Slater, [Primary Care Provider] - Diet/Activity/Treatments Diet: Diet as Tolerated Activity: As tolerated Visit Report/Discharge Packet Stand Alone Forms: Patient Portal/API, Stroke Signs & Symptoms Discharge Data Primary Care Provider: Marco Slater Attending Provider: Kailee Bailey VTE Deep Vein Thrombosis/Pulmonary Embolism Present on Admission: No
--- NOTE | 2022-04-09 13:26 | CM.DPNOTE ---
Discharge Planning Note: Patient cleared for discharge. Her sister Whitney coming to pick her up. Patient states she feels well. Looks good. DC to home. Laura Alfaro RN/DCP
--- NOTE | 2022-04-09 13:28 | PC.NURSE ---
d c paperwork reviewed w/ patient. instructed to f/u w/ PCP / it investment/portfolio manager specifically for rx: xeralto, as not taking it for a few days can put her at risk for clots/CVA. patient states she is switching to eloquis and has been in contact today w/ her pharmacy. patient spoke w/ dr Clark re: scopes and results. she states she has no questions for us, and is ready to go. sister arrived to take her home. patient's daughter vladimir will return sometime in the next day to picker and packer her toymisty cierra, and the keys are left at the [facility] desk.
[2022-04-10 16:13] LABS: von Willebrand Factor Activity 96 % (50-200)
== END 2022-04-09 13:00 | disposition home or self-care (01) | DRG 378 ==
LOC: ED 10:08 → AC 12:05
PROVIDERS: Internal Medicine; Surgery; Admitting Provider Family Medicine; Emergency Provider Emergency Medicine; PCP Family Medicine; Visit Provider Family Medicine
PROC: 0DJ08ZZ Inspection of Upper Intestinal Tract, Via Natural or Artificial Opening Endoscopic (ICD-10-PCS; CPT 43235; principal; 2022-04-07 09:30)
PROC: 0DJD8ZZ Inspection of Lower Intestinal Tract, Via Natural or Artificial Opening Endoscopic (ICD-10-PCS; CPT 45378; 2022-04-08 09:30)
DX: K92.2 Gastrointestinal hemorrhage, unspecified (principal); D62 Acute posthemorrhagic anemia; I10 Essential (primary) hypertension; E87.6 Hypokalemia; I48.0 Paroxysmal atrial fibrillation; G47.33 Obstructive sleep apnea (adult) (pediatric); D12.0 Benign neoplasm of cecum; Z20.822 Contact with and (suspected) exposure to COVID-19; Z79.01 Long term (current) use of anticoagulants; Z00.00 Encounter for general adult medical examination without abnormal findings; G47.01 Insomnia due to medical condition; E78.2 Mixed hyperlipidemia; J06.9 Acute upper respiratory infection, unspecified; R06.02 Shortness of breath
CPT/HCPCS: 0241U; 36415; 36430; 43235; 45385; 71046; 80048; 80053; 80061; 82272; 82550; 82553; 82607; 82746; 83010; 83540; 83550; 83615; 83690; 83735; 83880; 84443; 84484; 85014; 85018; 85025; 85045; 85245; 85610; 85730; 86850; 86900; 86901; 87635; 93005; 96374; 99232; 99284; C9803; G0378; P9016; C9113; J0330; J2250; J2405; J2704; J3010; J7613

== ENCOUNTER 2022-04-11 10:09 | Emergency (ER) | payer MEDICARE, OTHER, SELFPAY ==
[2022-04-10 10:27] VITALS: BMI 36.3
[2022-04-11 10:17] VITALS: BP 175/75; PULSE 75; RESP 18; TEMP 36.4; O2SAT 98; BMI 38.0
--- NOTE | 2022-04-11 12:41 | ED.GIBLEED ---
HPI - GI Bleed <Dion Joean, DO - Last Filed: 04/12/22 19:18> General Chief complaint: GI Bleed Stated complaint: gastrointestinal bleed per pt, SOB Time Seen by Provider: 04/11/22 12:26 Source: patient Mode of arrival: Ambulatory History of Present Illness HPI Narrative: 77-year-old female nonsmoker with history of hypertension, hyperlipidemia, AFib on Xarelto with recent admission for symptomatic GI bleed with transfusion and EGD and colonoscopy without identifiable source. She had dark blood in her stool this morning and has been feeling short of breath and weak. She has not been back on her Xarelto since discharge. She still feels a bit fatigued but not necessarily any different than during her hospitalization. She states that she is been eating and drinking and had her 1st bowel movement today which was noted to be dark in nature. She denies any pain and has had no fever or chills. She denies nausea, vomiting or diarrhea. Related Data Home Medications Medication Instructions Recorded Confirmed CHOLECALCIFEROL (VITAMIN D3) 2,000 iu PO Q DAY ##0 05/28/11 04/10/22 (Vitamin D) COENZYME Q10 (COQ10) 300 mg PO Q DAY ##0 05/28/11 04/10/22 Fish Oil (#FISH OIL) 300 iu PO Q DAY ##0 05/28/11 04/10/22 Respironics Dreamstation CPAP #1 ea 12/16/18 04/10/22 doxycycline hyclate 20 mg tablet 20 mg PO BID 03/22/22 04/10/22 Previous Rx's Medication Instructions Recorded triamcinolone acetonide 0.1 % 1 applic topical BID PRN Itching 02/01/21 topical cream #15 grams furosemide 20 mg tablet (Lasix) See Rx Instructions PO QAM PRN 02/06/21 edema #180 tabs amlodipine 5 mg tablet See Rx Instructions .Route 11/29/21 .COMPLEX #180 tabs metoprolol tartrate 75 mg tablet See Rx Instructions .Route 11/29/21 .COMPLEX #180 tabs atorvastatin 10 mg tablet 10 mg PO DAILY #90 tabs 01/15/22 pantoprazole 40 mg tablet,delayed 40 mg PO DAILY 30 days #30 tabs 04/09/22 release Allergies Allergy/AdvReac Type Severity Reaction Status Date / Time No Known Drug Allergies Allergy Verified 04/10/22 13:32 Review of Systems <Dion Park DO - Last Filed: 04/12/22 19:18> Review of Systems Narrative: GENERAL: See HPI HEENT: Denies sinus pain, ear pain, sore throat, difficulty swallowing, dizziness. RESPIRATORY: Denies dyspnea, cough, wheezing, hemoptysis, sputum. CARDIOVASCULAR: Denies chest pain, palpitations, orthopnea, edema, GASTROINTESTINAL: See HPI : Denies dysuria, frequency, incontinence, hematuria, urinary retention. MUSCULOSKELETAL: denies weakness, joint pain, or bony pain SKIN: Denies rash, skin lesions, or other NEUROLOGIC: Denies weakness, headache, numbness, change in speech, confusion, seizures, incoordination. PSYCHIATRIC: No concerning psychosocial issues. 12 point review of systems is negative except for those stated above Patient History <Dion Park DO - Last Filed: 04/12/22 19:18> Medical History Atrial fib/flutter, transient Essential hypertension (01/24/17) Hypertension Insomnia due to medical condition Mixed hyperlipidemia (01/24/17) Nonrheumatic aortic (valve) insufficiency (~2011) Nonrheumatic mitral (valve) insufficiency (~2011) Obesity (BMI 30-39.9) Obstructive sleep apnea Palpitations Skin lesions, generalized Well adult exam Surgical History History of carpal tunnel repair History of knee replacement History of knee replacement Status post dilation and curettage Status post discectomy Family History Child Age: 55 Aortic stenosis Father Diabetes mellitus Heart disease Sleep apnea Mother Age: 98 Dementia Hx of cancer of uterus Sister Age: 69 Hx of cancer of uterus Sleep apnea Social History household members: none Smoking Status: Never smoker alcohol intake: current Smoking Status: Never smoker alcohol intake frequency: holidays/special occasions only Substance Use Type: does not use Exam <Dion Park DO - Last Filed: 04/12/22 19:18> Narrative Exam Narrative: GENERAL: [77] year old patient appears stated age. Well-developed patient, in mild distress. HEAD: Atraumatic. Normocephalic. EYES: Pupils equal round and reactive. Extraocular motions intact. No scleral icterus. No injection or drainage. No conjunctival pallor ENT: Nose without bleeding, purulent drainage. Throat without erythema, tonsillar hypertrophy or exudate. Airway patent. NECK: Trachea midline. Non tender CARDIOVASCULAR: Regular rate and rhythm without murmurs, gallops, or rubs. RESPIRATORY: Clear to auscultation. Breath sounds equal bilaterally. No wheezes, rales, or rhonchi. GASTROINTESTINAL: Abdomen soft, non-tender, nondistended. RECTAL: No active bleeding EXTREMITIES: No edema or joint tenderness. BACK: Nontender without deformity or crepitance. No flank tenderness. NEURO: AOx3. SKIN: No rash or erythema of visible areas Initial Vital Signs Initial Vital Signs: Vital Signs Temperature 97.6 F 04/11/22 10:17 Pulse Rate 75 04/11/22 10:17 Respiratory Rate 18 04/11/22 10:17 Blood Pressure 175/75 H 04/11/22 10:17 Pulse Oximetry 98 04/11/22 10:17 Oxygen Delivery Method 04/11/22 10:17 <Omega Ann MD - Last Filed: 04/11/22 17:49> Initial Vital Signs Initial Vital Signs: Vital Signs Temperature 97.6 F 04/11/22 10:17 Pulse Rate 75 04/11/22 10:17 Respiratory Rate 18 04/11/22 10:17 Blood Pressure 175/75 H 04/11/22 10:17 Pulse Oximetry 98 04/11/22 10:17 Oxygen Delivery Method 04/11/22 10:17 Course <Dion Park DO - Last Filed: 04/12/22 19:18> Orders Ordered: Discontinued Medications Ondansetron HCl (Ondansetron 4 Mg/2 Ml Inj) 4 mg IV NOW PRN PRN Reason: Nausea And Vomiting Ondansetron HCl (Ondansetron 4 Mg Odt) 4 mg SL NOW PRN PRN Reason: Nausea And Vomiting Pantoprazole Sodium (Pantoprazole 40 Mg Vial) 80 mg IV NOW ONE Stop: 04/11/22 11:07 Last Admin: 04/11/22 12:46 Dose: 80 mg Documented By: ALBA Vital Signs Vital signs: Vital Signs - 8 hr 04/11/22 10:17 04/11/22 13:30 04/11/22 14:30 Temperature 97.6 F Pulse Rate 75 68 85 Respiratory Rate 18 16 16 Blood Pressure 175/75 H 169/74 H 172/75 H Pulse Oximetry 98 96 95 Oxygen Delivery Method Room Air Room Air Room Air <Omega Ann MD - Last Filed: 04/11/22 17:49> Orders Ordered: Discontinued Medications Ondansetron HCl (Ondansetron 4 Mg/2 Ml Inj) 4 mg IV NOW PRN PRN Reason: Nausea And Vomiting Ondansetron HCl (Ondansetron 4 Mg Odt) 4 mg SL NOW PRN PRN Reason: Nausea And Vomiting Pantoprazole Sodium (Pantoprazole 40 Mg Vial) 80 mg IV NOW ONE Stop: 04/11/22 11:07 Last Admin: 04/11/22 12:46 Dose: 80 mg Documented By: ALBA Vital Signs Vital signs: Vital Signs - 8 hr 04/11/22 10:17 04/11/22 13:30 04/11/22 14:30 Temperature 97.6 F Pulse Rate 75 68 85 Respiratory Rate 18 16 16 Blood Pressure 175/75 H 169/74 H 172/75 H Pulse Oximetry 98 96 95 Oxygen Delivery Method Room Air Room Air Room Air MDM - GI Bleed <Dion Park DO - Last Filed: 04/12/22 19:18> Lab Data Result diagrams: 04/11/22 16:50 04/11/22 12:44 Labs: Lab Results 04/11/22 04/11/22 04/11/22 Range/Units 11:06 12:44 12:44 WBC 7.2 (4.5-11.0) X10^3/uL RBC 3.11 L (4.0-5.2) X10^6/uL Hgb 9.0 L (12.0-16.0) g/dL Hct 27.0 L (36-46) % MCV 86.9 (80-100) fL MCH 28.9 (26-34) PG MCHC 33.2 (30-36) % RDW 14.6 (11.6-14.8) % Plt Count 238 (150-400) X10^3/uL Neut % (Auto) 63.6 (50-75) % Lymph % (Auto) 26.3 (25-40) % [place] % (Auto) 8.0 (3-14) % Eos % (Auto) 1.4 L (2-4) % Baso % (Auto) 0.7 (0-2) % Neut # (Auto) 4600 (7949-1516) /uL Lymph # (Auto) 1900 (4783-3298) /uL [place] # (Auto) 600 (0-900) /uL Eos # (Auto) 100 (0-450) /uL Baso # (Auto) 100 (0-100) /uL PT 12.3 (10.1-12.7) SECONDS INR 1.1 (0.9-1.3) APTT 28 (26-36) SECONDS Sodium (137-145) mmol/L Potassium (3.4-5.1) mmol/L Chloride (98-107) mmol/L Carbon Dioxide (22-32) mmol/L BUN (7-17) mg/dL Creatinine (0.52-1.04) mg/dL Estimated GFR (>60) mL/min BUN/Creatinine Ratio (6-22) Glucose (80-110) mg/dL Calcium (8.4-10.2) mg/dL Total Bilirubin (0.2-1.3) mg/dL AST (14-36) IU/L ALT (<35) IU/L Alkaline Phosphatase (38-126) U/L Total Protein (6.3-8.2) g/dL Albumin (3.5-5.0) g/dL Globulin (1.7-4.1) g/dL Albumin/Globulin Ratio (1.0-2.8) Blood Type O Positive Antibody Screen Negative 04/11/22 04/11/22 04/11/22 Range/Units 12:44 14:45 16:50 WBC 6.1 (4.5-11.0) X10^3/uL RBC 3.03 L (4.0-5.2) X10^6/uL Hgb 8.5 L 9.0 L (12.0-16.0) g/dL Hct 25.3 L 26.1 L (36-46) % MCV 86.3 (80-100) fL MCH 29.6 (26-34) PG MCHC 34.3 (30-36) % RDW 14.6 (11.6-14.8) % Plt Count 222 (150-400) X10^3/uL Neut % (Auto) 61.2 (50-75) % Lymph % (Auto) 27.3 (25-40) % [place] % (Auto) 8.3 (3-14) % Eos % (Auto) 2.0 (2-4) % Baso % (Auto) 1.2 (0-2) % Neut # (Auto) 3700 (2246-6446) /uL Lymph # (Auto) 1700 (5468-5274) /uL [place] # (Auto) 500 (0-900) /uL Eos # (Auto) 100 (0-450) /uL Baso # (Auto) 100 (0-100) /uL PT (10.1-12.7) SECONDS INR (0.9-1.3) APTT (26-36) SECONDS Sodium 136 L (137-145) mmol/L Potassium 3.8 (3.4-5.1) mmol/L Chloride 103 (98-107) mmol/L Carbon Dioxide 23 (22-32) mmol/L BUN 11 (7-17) mg/dL Creatinine 0.76 (0.52-1.04) mg/dL Estimated GFR > 60 (>60) mL/min BUN/Creatinine Ratio 14.5 (6-22) Glucose 112 H (80-110) mg/dL Calcium 8.6 (8.4-10.2) mg/dL Total Bilirubin 0.6 (0.2-1.3) mg/dL AST 34 (14-36) IU/L ALT 30 (<35) IU/L Alkaline Phosphatase 76 (38-126) U/L Total Protein 7.2 (6.3-8.2) g/dL Albumin 4.1 (3.5-5.0) g/dL Globulin 3.1 (1.7-4.1) g/dL Albumin/Globulin Ratio 1.3 (1.0-2.8) Blood Type Antibody Screen <Omega Ann MD - Last Filed: 04/11/22 17:49> Medical Records Medical records narrative: Care was assumed from Dr. Park at the time of his departure from his shift. Patient recently experienced GI bleeding associated with the use of Xarelto. She was transfused. Xarelto has been stopped. She may have experienced a bloody BM. Since discharge from the hospital earlier this week, she is no chest pain or dyspnea at rest. She does have dyspnea on exertion. She gets dizzy when up and moving around quickly. She is no abdominal pain. She is no bright red blood GI bleeding. Her initial H/H was 9.0/27, elevated from her H/H 2 days ago. A 2nd test was 8.5/25.3. Because of the drop, a 3rd test was done, H/H 9.0/26.1. Her vitals are stable. She was discharged home. Lab Data Labs: Lab Results 04/11/22 04/11/22 04/11/22 Range/Units 11:06 12:44 12:44 WBC 7.2 (4.5-11.0) X10^3/uL RBC 3.11 L (4.0-5.2) X10^6/uL Hgb 9.0 L (12.0-16.0) g/dL Hct 27.0 L (36-46) % MCV 86.9 (80-100) fL MCH 28.9 (26-34) PG MCHC 33.2 (30-36) % RDW 14.6 (11.6-14.8) % Plt Count 238 (150-400) X10^3/uL Neut % (Auto) 63.6 (50-75) % Lymph % (Auto) 26.3 (25-40) % [place] % (Auto) 8.0 (3-14) % Eos % (Auto) 1.4 L (2-4) % Baso % (Auto) 0.7 (0-2) % Neut # (Auto) 4600 (7049-7694) /uL Lymph # (Auto) 1900 (6719-2456) /uL [place] # (Auto) 600 (0-900) /uL Eos # (Auto) 100 (0-450) /uL Baso # (Auto) 100 (0-100) /uL PT 12.3 (10.1-12.7) SECONDS INR 1.1 (0.9-1.3) APTT 28 (26-36) SECONDS Sodium (137-145) mmol/L Potassium (3.4-5.1) mmol/L Chloride (98-107) mmol/L Carbon Dioxide (22-32) mmol/L BUN (7-17) mg/dL Creatinine (0.52-1.04) mg/dL Estimated GFR (>60) mL/min BUN/Creatinine Ratio (6-22) Glucose (80-110) mg/dL Calcium (8.4-10.2) mg/dL Total Bilirubin (0.2-1.3) mg/dL AST (14-36) IU/L ALT (<35) IU/L Alkaline Phosphatase (38-126) U/L Total Protein (6.3-8.2) g/dL Albumin (3.5-5.0) g/dL Globulin (1.7-4.1) g/dL Albumin/Globulin Ratio (1.0-2.8) Blood Type O Positive Antibody Screen Negative 04/11/22 04/11/22 04/11/22 Range/Units 12:44 14:45 16:50 WBC 6.1 (4.5-11.0) X10^3/uL RBC 3.03 L (4.0-5.2) X10^6/uL Hgb 8.5 L 9.0 L (12.0-16.0) g/dL Hct 25.3 L 26.1 L (36-46) % MCV 86.3 (80-100) fL MCH 29.6 (26-34) PG MCHC 34.3 (30-36) % RDW 14.6 (11.6-14.8) % Plt Count 222 (150-400) X10^3/uL Neut % (Auto) 61.2 (50-75) % Lymph % (Auto) 27.3 (25-40) % [place] % (Auto) 8.3 (3-14) % Eos % (Auto) 2.0 (2-4) % Baso % (Auto) 1.2 (0-2) % Neut # (Auto) 3700 (6180-5992) /uL Lymph # (Auto) 1700 (6415-1568) /uL [place] # (Auto) 500 (0-900) /uL Eos # (Auto) 100 (0-450) /uL Baso # (Auto) 100 (0-100) /uL PT (10.1-12.7) SECONDS INR (0.9-1.3) APTT (26-36) SECONDS Sodium 136 L (137-145) mmol/L Potassium 3.8 (3.4-5.1) mmol/L Chloride 103 (98-107) mmol/L Carbon Dioxide 23 (22-32) mmol/L BUN 11 (7-17) mg/dL Creatinine 0.76 (0.52-1.04) mg/dL Estimated GFR > 60 (>60) mL/min BUN/Creatinine Ratio 14.5 (6-22) Glucose 112 H (80-110) mg/dL Calcium 8.6 (8.4-10.2) mg/dL Total Bilirubin 0.6 (0.2-1.3) mg/dL AST 34 (14-36) IU/L ALT 30 (<35) IU/L Alkaline Phosphatase 76 (38-126) U/L Total Protein 7.2 (6.3-8.2) g/dL Albumin 4.1 (3.5-5.0) g/dL Globulin 3.1 (1.7-4.1) g/dL Albumin/Globulin Ratio 1.3 (1.0-2.8) Blood Type Antibody Screen Discharge Plan Departure Patient Disposition: Home Clinical Impression: Acute blood loss anemia Instructions: Anemia Activity Restrictions/Additional Instructions: Your H/H stable. I recommend a high protein diet. Consider iron supplements. Consider vitamin-C and vitamin-D supplements. Follow-up with your doctor as scheduled. You can not resume anticoagulation at this time, talk to your doctor about alternatives at the next visit. Return here for aggressive weakness, dizziness, or obvious return of GI bleeding. Prescriptions: No Action Fish Oil (#FISH OIL) 300 iu PO Q DAY Qty: 0 CHOLECALCIFEROL (VITAMIN D3) (Vitamin D) 2,000 iu PO Q DAY Qty: 0 COENZYME Q10 (COQ10) 300 mg PO Q DAY Qty: 0 triamcinolone acetonide 0.1 % cream 1 applic Topical BID PRN (Reason: Itching) Qty: 15 3RF furosemide [Lasix] 20 mg tablet See Rx Instructions PO QAM PRN (Reason: edema) Qty: 180 3RF Dose Instruction: 1-2 tabs as needed for swelling PO QAM; Rx Instructions: 1-2 tabs as needed for swelling PO every morning PRN; amlodipine 5 mg tablet See Rx Instructions .ROUTE .COMPLEX Qty: 180 0RF Dose Instruction: TAKE 1 TABLET TWICE DAILY Rx Instructions: TAKE 1 TABLET TWICE DAILY metoprolol tartrate 75 mg tablet See Rx Instructions .ROUTE .COMPLEX Qty: 180 0RF Dose Instruction: TAKE 1 TABLET TWICE DAILY Rx Instructions: TAKE 1 TABLET TWICE DAILY atorvastatin 10 mg tablet 10 mg PO DAILY Qty: 90 3RF doxycycline hyclate 20 mg tablet 20 mg PO BID pantoprazole 40 mg tablet,delayed release (DR/EC) 40 mg PO DAILY 30 Days Qty: 30 0RF (DME) [employer] Dreamstation CPAP Qty: 1 Label Comments: Pressure: 6-12 cmH2O DME: [facility] Rx Instructions: As directed Referrals: Marco Slater, [Primary Care Provider] - Stand Alone Forms: Patient Portal/API
[2022-04-11] MEDS: PANTOPRAZOLE 40 MG VIAL 80 MG IV (12:46)
[2022-04-11 13:08] LABS: Add Manual Diff / Slide Review NO; Basophils Absolute Auto 100 /uL (0-100); Basophils Percent Auto 0.7 % (0-2); Eosinophils Absolute Auto 100 /uL (0-450); Eosinophils Percent Auto 1.4 % (2-4); Lymphocytes Absolute Auto 1900 /uL (1100-4500); Lymphocytes Percent Auto 26.3 % (25-40); Mean Corpuscular HGB Conc 33.2 % (30-36); Mean Corpuscular Hemoglobin 28.9 PG (26-34); Mean Corpuscular Volume 86.9 fL (80-100); Monocytes Absolute Auto 600 /uL (0-900); Neutrophils Absolute Auto 4600 /uL (1500-7000); Neutrophils Percent Auto 63.6 % (50-75); Platelet Count 238 X10^3/uL (150-400); Red Blood Cell Count 3.11 X10^6/uL (4.0-5.2); Red Cell Distribution Width 14.6 % (11.6-14.8); White Blood Cell Count 7.2 X10^3/uL (4.5-11.0)
[2022-04-11 13:30] VITALS: BP 169/74; PULSE 68; RESP 16; O2SAT 96
[2022-04-11 13:38] LABS: INR 1.1 (0.9-1.3); Prothrombin Time 12.3 SECONDS (10.1-12.7)
[2022-04-11 13:41] LABS: PTT Partial Thromboplastin Tim 28 SECONDS (26-36)
[2022-04-11 13:42] LABS: Alanine Aminotransferase 30 IU/L (<35); Albumin 4.1 g/dL (3.5-5.0); Albumin Globulin Ratio 1.3 (1.0-2.8); Alkaline Phosphatase 76 U/L (38-126); Aspartate Aminotransferase 34 IU/L (14-36); BUN Creatinine Ratio 14.5 (6-22); Bilirubin Total 0.6 mg/dL (0.2-1.3); Blood Urea Nitrogen 11 mg/dL (7-17); Calcium 8.6 mg/dL (8.4-10.2); Carbon Dioxide 23 mmol/L (22-32); Chloride 103 mmol/L (98-107); Estimated Glomerular Filt Rate > 60 mL/min (>60); Globulin 3.1 g/dL (1.7-4.1); Glucose 112 mg/dL (80-110); HEMOLYSIS < 15 (0-50); Potassium 3.8 mmol/L (3.4-5.1); Sodium 136 mmol/L (137-145); Total Protein 7.2 g/dL (6.3-8.2)
[2022-04-11 14:30] VITALS: BP 172/75; PULSE 85; RESP 16; O2SAT 95
[2022-04-11 14:53] LABS: Hematocrit 25.3 % (36-46); Hemoglobin 8.5 g/dL (12.0-16.0)
[2022-04-11 17:03] LABS: Add Manual Diff / Slide Review NO; Basophils Absolute Auto 100 /uL (0-100); Basophils Percent Auto 1.2 % (0-2); Eosinophils Absolute Auto 100 /uL (0-450); Hematocrit 26.1 % (36-46); Lymphocytes Absolute Auto 1700 /uL (1100-4500); Lymphocytes Percent Auto 27.3 % (25-40); Mean Corpuscular HGB Conc 34.3 % (30-36); Mean Corpuscular Hemoglobin 29.6 PG (26-34); Mean Corpuscular Volume 86.3 fL (80-100); Monocytes Absolute Auto 500 /uL (0-900); Monocytes Percent Auto 8.3 % (3-14); Neutrophils Absolute Auto 3700 /uL (1500-7000); Neutrophils Percent Auto 61.2 % (50-75); Platelet Count 222 X10^3/uL (150-400); Red Blood Cell Count 3.03 X10^6/uL (4.0-5.2); Red Cell Distribution Width 14.6 % (11.6-14.8); White Blood Cell Count 6.1 X10^3/uL (4.5-11.0)
[2022-04-11 18:25] VITALS: BP 169/70; PULSE 83; RESP 16; O2SAT 99
== END 2022-04-11 18:26 | disposition home or self-care (01) ==
PROVIDERS: Emergency Medicine; Emergency Provider Emergency Medicine; PCP Family Medicine
DX: D62 Acute posthemorrhagic anemia (principal); I48.91 Unspecified atrial fibrillation; Z79.01 Long term (current) use of anticoagulants
CPT/HCPCS: 36415; 80053; 85014; 85018; 85025; 85610; 85730; 86850; 86900; 86901; 93005; 93010; 96374; 99284; C9113

== ENCOUNTER → 2022-04-24 09:29 | Outpatient (CLI) | payer MEDICARE, OTHER, SELFPAY ==
[2022-04-10 10:27] VITALS: BMI 36.3
[2022-04-24 10:34] LABS: Add Manual Diff / Slide Review NO; Basophils Absolute Auto 100 /uL (0-100); Basophils Percent Auto 1.2 % (0-2); Eosinophils Absolute Auto 100 /uL (0-450); Eosinophils Percent Auto 1.7 % (2-4); Hematocrit 30.3 % (36-46); Hemoglobin 10.1 g/dL (12.0-16.0); Lymphocytes Absolute Auto 1500 /uL (1100-4500); Mean Corpuscular HGB Conc 33.3 % (30-36); Mean Corpuscular Hemoglobin 28.4 PG (26-34); Mean Corpuscular Volume 85.1 fL (80-100); Monocytes Absolute Auto 500 /uL (0-900); Monocytes Percent Auto 7.3 % (3-14); Neutrophils Absolute Auto 4200 /uL (1500-7000); Neutrophils Percent Auto 65.8 % (50-75); Platelet Count 273 X10^3/uL (150-400); Red Blood Cell Count 3.56 X10^6/uL (4.0-5.2); Red Cell Distribution Width 14.3 % (11.6-14.8); White Blood Cell Count 6.4 X10^3/uL (4.5-11.0)
== END ==
PROVIDERS: PCP Family Medicine; Referring Provider Family Medicine; Visit Provider Family Medicine
DX: D64.9 Anemia, unspecified (principal); K92.2 Gastrointestinal hemorrhage, unspecified
CPT/HCPCS: 36415; 85025

== ENCOUNTER → 2022-04-26 12:10 | Outpatient (CLI) | payer MEDICARE, OTHER, SELFPAY ==
[2022-04-10 10:27] VITALS: BMI 36.3
--- NOTE | 2022-04-26 12:12 | DI.RAD.S_ITS ---
PROCEDURE: XR ABDOMEN MIN 2V INDICATIONS: Retained Capsular Endoscopy TECHNIQUE: 2 views of the abdomen were acquired. COMPARISON: None. FINDINGS: Surgical changes and devices: None. Bowel: No pneumoperitoneum. The bowel gas pattern is normal. No radiopaque foreign body is seen in the abdomen or pelvis. Soft tissues: No masses; visualized solid organ contours appear normal in size. No suspicious abdominal calcifications. Bones: No suspicious bony abnormalities. Degenerative changes are seen in the spine. IMPRESSION: No radiopaque foreign body is seen in the abdomen or pelvis. Approved by: Aayush Stone M.D. on 04/26/2022 at 14:23
== END ==
PROVIDERS: PCP Family Medicine; Referring Provider Family Medicine; Visit Provider Family Medicine
DX: K92.2 Gastrointestinal hemorrhage, unspecified (principal)
CPT/HCPCS: 74019

== ENCOUNTER → 2022-05-16 10:35 | Outpatient (CLI) | payer MEDICARE, OTHER, SELFPAY ==
[2022-04-10 10:27] VITALS: BMI 36.3
[2022-05-16 14:18] LABS: Add Manual Diff / Slide Review NO; Basophils Absolute Auto 100 /uL (0-100); Eosinophils Absolute Auto 100 /uL (0-450); Eosinophils Percent Auto 1.2 % (2-4); Hematocrit 32.4 % (36-46); Hemoglobin 10.6 g/dL (12.0-16.0); Lymphocytes Absolute Auto 2300 /uL (1100-4500); Lymphocytes Percent Auto 28.4 % (25-40); Mean Corpuscular HGB Conc 32.8 % (30-36); Mean Corpuscular Volume 82.2 fL (80-100); Monocytes Absolute Auto 600 /uL (0-900); Monocytes Percent Auto 7.6 % (3-14); Neutrophils Absolute Auto 5000 /uL (1500-7000); Neutrophils Percent Auto 61.8 % (50-75); Platelet Count 281 X10^3/uL (150-400); Red Blood Cell Count 3.94 X10^6/uL (4.0-5.2); Red Cell Distribution Width 15.3 % (11.6-14.8); White Blood Cell Count 8.1 X10^3/uL (4.5-11.0)
== END ==
PROVIDERS: Surgery; PCP Family Medicine; Referring Provider Internal Medicine Gastroenterology; Visit Provider Internal Medicine Gastroenterology
DX: D50.0 Iron deficiency anemia secondary to blood loss (chronic) (principal)
CPT/HCPCS: 36415; 85025

== ENCOUNTER → 2022-06-11 15:15 | Outpatient (CLI) | payer MEDICARE, OTHER, SELFPAY ==
[2022-04-10 10:27] VITALS: BMI 36.3
--- NOTE | 2022-06-11 15:40 | DI.DEXA.S_ITS ---
Indication: postmenopausal; screening for osteoporosis; Referring Provider: WILLAM LAYTON Study: Bone densitometry was performed. Exam Date: June 11, 2022 Accession number: [id number] Bone Density: Region BMD T-score Z-score Classification AP Spine(L1-L4) 1.073 0.2 2.7 Normal Femoral Neck (Left) 0.676 -1.6 0.5 Osteopenia Total Hip (Left) 0.866 -0.6 1.2 Normal Femoral Neck (Right) 0.725 -1.1 1.0 Osteopenia Total Hip (Right) 0.895 -0.4 1.4 Normal Total Hip Mean 0.881 -0.5 1.3 Normal World Health Organization criteria for BMD impression classify patients as: Normal (T-score at or above -1.0), Osteopenia (T-score between -1.0 and -2.5), or Osteoporosis (T-score at or below -2.5). 10-year Fracture Risk(1): Major Osteoporotic Fracture 10% Hip Fracture 2.0% Reported Risk Factors: [place] (), Neck BMD=0.676, BMI=37.4 (1) FRAX(R) Version 3.08. Fracture probability calculated for an untreated patient. Fracture probability may be lower if the patient has received treatment. Impression: The patient has low bone mass, based on the Left Femoral Neck T-score. The patient has an estimated ten-year risk of hip fracture of 2% and an estimated ten-year risk of major fracture of 10%, based on the WHO FRAX algorithm. Discussion: BONE DENSITY IS LOW AT ONE OR MORE SKELETAL SITES. This patient's lowest T-score is low at one or more skeletal sites. It meets the World Health Organization's (WHO) criteria for ?low bone mass? (T-score between -1.0 and -2.5). The patient's 10-year risk of fracture as calculated by FRAX is less than the threshold where pharmacological therapy is recommended by the National Osteoporosis Foundation (NOF). However, all treatment decisions require clinical judgment and consideration of individual patient factors, including patient preferences, comorbidities, previous drug use, risk factors not captured in the FRAX model (e.g., frailty, falls, vitamin D deficiency, increased bone turnover, interval significant decline in bone density) and possible under or overestimation of fracture risk by FRAX. The patient should follow a healthful lifestyle (good nutrition with adequate calcium and vitamin D, and appropriate weight-bearing exercise). Follow-Up: Consider repeating this study in 2 to 3 years to reassess this patient's status, or sooner if there is some new clinical indication. Reported by: Heber Stone M.D. on 06/11/2022 3:55:00 PM.
== END ==
PROVIDERS: PCP Family Medicine; Referring Provider Family Medicine; Visit Provider Family Medicine
DX: M85.852 Other specified disorders of bone density and structure, left thigh (principal); Z78.0 Asymptomatic menopausal state; E78.2 Mixed hyperlipidemia; G47.01 Insomnia due to medical condition; Z13.820 Encounter for screening for osteoporosis; I10 Essential (primary) hypertension
CPT/HCPCS: 77080

== ENCOUNTER → 2022-06-27 08:45 | Outpatient (CLI) | payer MEDICARE, OTHER, SELFPAY ==
[2022-04-10 10:27] VITALS: BMI 36.3
[2022-06-27 09:55] LABS: INR 1.1 (0.9-1.3); Prothrombin Time 12.8 SECONDS (10.1-12.7)
[2022-06-27 09:59] LABS: BUN Creatinine Ratio 10.4 (6-22); Blood Urea Nitrogen 8 mg/dL (7-17); Calcium 8.9 mg/dL (8.4-10.2); Carbon Dioxide 27 mmol/L (22-32); Chloride 96 mmol/L (98-107); Estimated Glomerular Filt Rate > 60 mL/min (>60); Glucose 102 mg/dL (80-110); Potassium 3.9 mmol/L (3.4-5.1); Sodium 131 mmol/L (137-145)
[2022-06-27 10:00] LABS: HEMOLYSIS < 15 (0-50)
[2022-06-27 10:17] LABS: High Sensitivity CRP - Cardiac 4.1 mg/L (1.0-3.0)
== END ==
PROVIDERS: PCP Family Medicine; Referring Provider Internal Medicine Interventional Cardiology; Visit Provider Internal Medicine Interventional Cardiology
DX: I48.0 Paroxysmal atrial fibrillation (principal)
CPT/HCPCS: 36415; 80048; 85610; 86140

== ENCOUNTER → 2022-06-29 10:53 | Outpatient (CLI) | payer MEDICARE, OTHER, SELFPAY ==
[2022-04-10 10:27] VITALS: BMI 36.3
[2022-06-29 12:04] LABS: Albumin 4.2 g/dL (3.5-5.0); Blood Urea Nitrogen 12 mg/dL (7-17); Carbon Dioxide 28 mmol/L (22-32); Chloride 96 mmol/L (98-107); Estimated Glomerular Filt Rate > 60 mL/min (>60); Glucose 94 mg/dL (80-110); HEMOLYSIS < 15 (0-50); Potassium 4.3 mmol/L (3.4-5.1); Sodium 134 mmol/L (137-145)
== END ==
PROVIDERS: PCP Family Medicine; Referring Provider Internal Medicine Interventional Cardiology; Visit Provider Internal Medicine Interventional Cardiology
DX: R60.0 Localized edema (principal)
CPT/HCPCS: 36415; 80069

== ENCOUNTER → 2022-07-20 10:18 | Outpatient (CLI) | payer MEDICARE, OTHER, SELFPAY ==
[2022-04-10 10:27] VITALS: BMI 36.3
[2022-07-20 11:41] LABS: HEMOLYSIS < 15 (0-50); Iron 21 ug/dL (37-170)
[2022-07-20 11:46] LABS: Alanine Aminotransferase 53 IU/L (<35); Albumin 3.5 g/dL (3.5-5.0); Albumin Globulin Ratio 1.3 (1.0-2.8); Alkaline Phosphatase 79 U/L (38-126); Aspartate Aminotransferase 50 IU/L (14-36); BUN Creatinine Ratio 17.5 (6-22); Bilirubin Total 0.6 mg/dL (0.2-1.3); Blood Urea Nitrogen 14 mg/dL (7-17); Calcium 8.8 mg/dL (8.4-10.2); Carbon Dioxide 25 mmol/L (22-32); Chloride 97 mmol/L (98-107); Estimated Glomerular Filt Rate > 60 mL/min (>60); Globulin 2.6 g/dL (1.7-4.1); Glucose 107 mg/dL (80-110); HEMOLYSIS < 15 (0-50); Sodium 131 mmol/L (137-145); Total Protein 6.1 g/dL (6.3-8.2)
[2022-07-20 11:52] LABS: Percent Iron Saturation 5 % (15-50); Total Iron Binding Capacity 400 ug/dL (265-497); Transferrin 281 mg/dL (206-381)
[2022-07-20 12:32] LABS: Vitamin B12 942 pg/mL (239-931)
== END ==
PROVIDERS: PCP Family Medicine; Referring Provider Family Medicine; Visit Provider Family Medicine
DX: D50.0 Iron deficiency anemia secondary to blood loss (chronic) (principal); K92.2 Gastrointestinal hemorrhage, unspecified
CPT/HCPCS: 36415; 80053; 82607; 83540; 83550

== ENCOUNTER → 2022-07-26 14:10 | Outpatient (CLI) | payer MEDICARE, OTHER, SELFPAY ==
[2022-04-10 10:27] VITALS: BMI 36.3
[2022-07-26 15:05] LABS: Add Manual Diff / Slide Review NO; Basophils Absolute Auto 100 /uL (0-100); Basophils Percent Auto 1.1 % (0-2); Eosinophils Absolute Auto 100 /uL (0-450); Eosinophils Percent Auto 1.7 % (2-4); Hemoglobin 11.7 g/dL (12.0-16.0); Lymphocytes Absolute Auto 1900 /uL (1100-4500); Lymphocytes Percent Auto 26.4 % (25-40); Mean Corpuscular HGB Conc 33.3 % (30-36); Mean Corpuscular Hemoglobin 26.6 PG (26-34); Mean Corpuscular Volume 79.9 fL (80-100); Monocytes Absolute Auto 700 /uL (0-900); Monocytes Percent Auto 9.8 % (3-14); Neutrophils Absolute Auto 4500 /uL (1500-7000); Platelet Count 239 X10^3/uL (150-400); Red Blood Cell Count 4.39 X10^6/uL (4.0-5.2); Red Cell Distribution Width 16.7 % (11.6-14.8); White Blood Cell Count 7.4 X10^3/uL (4.5-11.0)
== END ==
PROVIDERS: PCP Family Medicine; Referring Provider Family Medicine; Visit Provider Family Medicine
DX: D64.9 Anemia, unspecified (principal); K92.2 Gastrointestinal hemorrhage, unspecified
CPT/HCPCS: 36415; 85025

== ENCOUNTER → 2022-08-08 08:29 | Outpatient (CLI) | payer MEDICARE, OTHER, SELFPAY ==
[2022-04-10 10:27] VITALS: BMI 36.3
[2022-08-08 09:32] LABS: Add Manual Diff / Slide Review NO; Basophils Absolute Auto 100 /uL (0-100); Basophils Percent Auto 1.2 % (0-2); Eosinophils Absolute Auto 100 /uL (0-450); Eosinophils Percent Auto 2.5 % (2-4); Hematocrit 34.4 % (36-46); Hemoglobin 11.4 g/dL (12.0-16.0); Lymphocytes Absolute Auto 1400 /uL (1100-4500); Lymphocytes Percent Auto 27.4 % (25-40); Mean Corpuscular HGB Conc 33.2 % (30-36); Mean Corpuscular Hemoglobin 26.6 PG (26-34); Mean Corpuscular Volume 80.1 fL (80-100); Monocytes Absolute Auto 400 /uL (0-900); Monocytes Percent Auto 8.2 % (3-14); Neutrophils Absolute Auto 3200 /uL (1500-7000); Neutrophils Percent Auto 60.7 % (50-75); Platelet Count 204 X10^3/uL (150-400); Red Blood Cell Count 4.29 X10^6/uL (4.0-5.2); Red Cell Distribution Width 16.9 % (11.6-14.8); White Blood Cell Count 5.3 X10^3/uL (4.5-11.0)
[2022-08-08 09:48] LABS: Albumin 4.1 g/dL (3.5-5.0); BUN Creatinine Ratio 11.6 (6-22); Blood Urea Nitrogen 8 mg/dL (7-17); Carbon Dioxide 26 mmol/L (22-32); Chloride 96 mmol/L (98-107); Estimated Glomerular Filt Rate > 60 mL/min (>60); Glucose 114 mg/dL (80-110); HEMOLYSIS < 15 (0-50); Phosphorous 3.9 mg/dL (2.8-4.1); Potassium 3.6 mmol/L (3.4-5.1); Sodium 132 mmol/L (137-145)
[2022-08-08 09:50] LABS: INR 1.6 (0.9-1.3); Prothrombin Time 18.3 SECONDS (10.1-12.7)
== END ==
PROVIDERS: PCP Family Medicine; Referring Provider Internal Medicine Interventional Cardiology; Visit Provider Internal Medicine Interventional Cardiology
DX: R60.0 Localized edema (principal); I48.0 Paroxysmal atrial fibrillation
CPT/HCPCS: 36415; 80069; 85025; 85610

== ENCOUNTER → 2022-11-01 12:03 | Outpatient (CLI) | payer MEDICARE, OTHER, SELFPAY ==
[2022-04-10 10:27] VITALS: BMI 36.3
[2022-11-01 13:21] LABS: Add Manual Diff / Slide Review NO; Basophils Absolute Auto 100 /uL (0-100); Basophils Percent Auto 1.1 % (0-2); Eosinophils Absolute Auto 100 /uL (0-450); Eosinophils Percent Auto 1.2 % (2-4); Hematocrit 35.5 % (36-46); Lymphocytes Absolute Auto 1600 /uL (1100-4500); Lymphocytes Percent Auto 28.4 % (25-40); Mean Corpuscular HGB Conc 33.9 % (30-36); Mean Corpuscular Hemoglobin 28.4 PG (26-34); Mean Corpuscular Volume 83.7 fL (80-100); Monocytes Absolute Auto 400 /uL (0-900); Monocytes Percent Auto 7.6 % (3-14); Neutrophils Absolute Auto 3500 /uL (1500-7000); Neutrophils Percent Auto 61.7 % (50-75); Platelet Count 232 X10^3/uL (150-400); Red Blood Cell Count 4.24 X10^6/uL (4.0-5.2); Red Cell Distribution Width 15.2 % (11.6-14.8); White Blood Cell Count 5.7 X10^3/uL (4.5-11.0)
[2022-11-01 14:16] LABS: Alanine Aminotransferase 22 IU/L (<35); Aspartate Aminotransferase 32 IU/L (14-36); Cholesterol 134 mg/dL (140-199); Creatine Kinase 64 U/L (30-135); HDL Cholesterol 45 mg/dL (40-60); LDL Cholesterol Calculated 80 mg/dL (<100); Triglycerides 47 mg/dL (35-150)
[2022-11-01 17:40] LABS: LDL Cholesterol Direct 64 mg/dL (<100)
== END ==
PROVIDERS: PCP Family Medicine; Referring Provider Internal Medicine Cardiovascular Disease; Visit Provider Internal Medicine Cardiovascular Disease
DX: E78.5 Hyperlipidemia, unspecified (principal); I10 Essential (primary) hypertension
CPT/HCPCS: 36415; 80061; 82550; 83721; 84450; 84460; 85025

== ENCOUNTER → 2022-12-20 09:47 | Outpatient (CLI) | payer MEDICARE, OTHER, SELFPAY ==
[2022-04-10 10:27] VITALS: BMI 36.3
--- NOTE | 2022-12-20 09:51 | DI.US.S_ITS ---
PROCEDURE: US PELVIC COMPLETE INDICATIONS: VAGINAL BLEEDING IN POST-MENOPAUSAL PATIENT. TECHNIQUE: Real-time scanning was performed of the pelvic organs, with image documentation. Additional endovaginal scanning was necessary due to incomplete visualization of the adnexal and endometrial structures by transabdominal scanning. COMPARISON: [facility], [place], PELVIC COMPLETE, 01/07/2013, 16:04. FINDINGS: Uterus: Uterus is anteverted and normal in size at 5.5 x 2.8 x 3.7 cm. The myometrium is heterogeneous. The endometrium measures 7 mm combined thickness. Possible cystic change of the endometrium. Ovaries: Not visualized. No adnexal mass identified. Other: No pathologic free abdominal or pelvic fluid. IMPRESSION: 1. The endometrium measures 7 mm, abnormally thickened in the setting of postmenopausal bleeding. There may also be cystic change of the endometrium demonstrated. Findings raise the possibility of endometrial hyperplasia, carcinoma not excludable. Gynecology consultation may be helpful to direct further management. 2. The ovaries are not visualized, likely due to bowel gas and/or senescent change. We strive to produce accurate, complete, and clear reports of imaging services. To assist us in improving patient care, this report was composed using standard report templates and voice recognition software. Therefore, it may contain abnormal punctuation, insertions and/or omissions. Occasional wrong-word or sound-alike substitutions may occur. Though we review the report and make efforts to correct it, we do recommend that the report be read carefully in proper context to recognize any text inaccuracies. Dictated by: Aayush Baumann M.D. on 12/20/2022 at 16:55 Approved by: Aayush Baumann M.D. on 12/20/2022 at 17:05
== END ==
PROVIDERS: PCP Family Medicine; Referring Provider Family Medicine; Visit Provider Family Medicine
DX: N93.9 Abnormal uterine and vaginal bleeding, unspecified (principal); R93.89 Abnormal findings on diagnostic imaging of other specified body structures
CPT/HCPCS: 76830; 76856

== ENCOUNTER → 2023-01-15 10:46 | Outpatient (CLI) | payer MEDICARE, OTHER, SELFPAY ==
[2022-04-10 10:27] VITALS: BMI 36.3
--- NOTE | 2023-01-15 10:51 | DI.CT.S_ITS ---
PROCEDURE: CT CHEST ABD PEL W CON INDICATIONS: additional screening for thickened endometrium TECHNIQUE: After the administration of oral and intravenous contrast, axial sections acquired from the supraclavicular neck to the pubic symphysis. Coronal and sagittal reformats were performed. For radiation dose reduction, the following was used: automated exposure control, adjustment of mA and/or kV according to patient size. COMPARISON: [facility], , [place] PELVIC COMPLETE, 12/20/2022, 9:56. FINDINGS: Image quality: Excellent. CHEST: Lower Neck: No enlarged lymph nodes. Thyroid: Within normal limits. Axillae: No enlarged lymph nodes. Chest Wall: Unremarkable. Lungs and Airways: 3 mm juxtapleural nodule in the lateral right upper lobe, presumably a benign intrapulmonary lymph node given location (series 3, image 111). Pleura: No pneumothorax or pleural effusions. Heart: Heart size is normal. No pericardial effusion. Atrial occlusion device with partial thrombosis of the left atrial appendage. Three-vessel coronary calcifications. Thoracic Vessels: The aorta and pulmonary arteries demonstrate normal size. Mediastinum and Laina: No enlarged lymph nodes. Esophagus: No wall thickening. Moderate hiatal hernia. ABDOMEN: Liver: Fluid attenuating cyst in segment 4B. Gallbladder: Unremarkable. Biliary ducts: Unremarkable. Pancreas: Unremarkable. Spleen: Unremarkable. Adrenal Glands: Unremarkable. Kidneys and Ureters: No complex renal cystic lesions which require follow-up. Stomach and Bowel: Stomach, small bowel loops, and colon are unremarkable. Peritoneum: No abnormal intraperitoneal fluid. No free air. Ventral Wall: No hernia. Abdominal Nodes: No retroperitoneal or mesenteric adenopathy by size criteria. Vessels: Aorta and inferior vena cava are normal in size. PELVIS: Pelvic Organs: Ovaries are atrophic. Normal contour of the uterus. Bladder: Unremarkable. Pelvic Nodes: No enlarged lymph nodes. Miscellaneous: No inguinal hernias are seen. Bones: Unremarkable. IMPRESSION: 1. No evidence of brittney disease or metastatic disease. 2. Marked coronary artery calcifications for age. Consider cardiology referral. Dictated by: Marco Solomon M.D. on 01/15/2023 at 14:31 Approved by: Marco Solomon M.D. on 01/15/2023 at 14:36
[2023-01-15 11:14] LABS: Estimated Glomerular Filt Rate > 60 mL/min (>60)
[2023-01-15 11:44] LABS: Cancer Antigen 125 9.9 U/mL (0-35)
== END ==
PROVIDERS: PCP Family Medicine; Referring Provider Obstetrics & Gynecology; Visit Provider Obstetrics & Gynecology
DX: Z01.812 Encounter for preprocedural laboratory examination (principal); R93.89 Abnormal findings on diagnostic imaging of other specified body structures; I25.10 Atherosclerotic heart disease of native coronary artery without angina pectoris
CPT/HCPCS: 36415; 71260; 74177; 82565; 86304

== ENCOUNTER → 2023-03-12 11:09 | Outpatient (CLI) | payer MEDICARE, OTHER, SELFPAY ==
[2022-04-10 10:27] VITALS: BMI 36.3
[2023-03-12 12:58] LABS: Lactate Dehydrogenase 160 U/L (120-246)
[2023-03-12 13:25] LABS: Cancer Antigen 125 63.8 U/mL (0-35)
[2023-03-12 13:34] LABS: Erythrocyte Sedimentation Rate 29 MM/HR (0-20)
== END ==
PROVIDERS: PCP Family Medicine; Referring Provider Internal Medicine Hematology & Oncology; Visit Provider Internal Medicine Hematology & Oncology
DX: C54.1 Malignant neoplasm of endometrium (principal); G47.33 Obstructive sleep apnea (adult) (pediatric); I48.11 Longstanding persistent atrial fibrillation; Z95.818 Presence of other cardiac implants and grafts
CPT/HCPCS: 36415; 83615; 85651; 86304

== ENCOUNTER → 2023-12-27 12:53 | Outpatient (CLI) | payer MEDICARE, OTHER, SELFPAY ==
[2022-04-10 10:27] VITALS: BMI 36.3
[2023-12-27 13:49] LABS: Add Manual Diff / Slide Review NO; Basophils Absolute Auto 0 /uL (0-100); Basophils Percent Auto 0.8 % (0-2); Eosinophils Absolute Auto 100 /uL (0-450); Eosinophils Percent Auto 1.2 % (2-4); Hemoglobin 10.9 g/dL (12.0-16.0); Lymphocytes Absolute Auto 1400 /uL (1100-4500); Mean Corpuscular HGB Conc 34.2 % (30-36); Mean Corpuscular Hemoglobin 30.6 PG (26-34); Mean Corpuscular Volume 89.5 fL (80-100); Monocytes Absolute Auto 300 /uL (0-900); Monocytes Percent Auto 7.2 % (3-14); Neutrophils Absolute Auto 2600 /uL (1500-7000); Neutrophils Percent Auto 58.8 % (50-75); Platelet Count 201 X10^3/uL (150-400); Red Blood Cell Count 3.57 X10^6/uL (4.0-5.2); Red Cell Distribution Width 14.9 % (11.6-14.8); White Blood Cell Count 4.4 X10^3/uL (4.5-11.0)
[2023-12-27 14:02] LABS: Hemoglobin A1C% w Est Avg Glu 5.1 % (4.0-6.0)
[2023-12-27 14:16] LABS: HEMOLYSIS < 15 (0-50); Iron 63 ug/dL (37-170)
[2023-12-27 14:23] LABS: Alanine Aminotransferase 23 IU/L (<35); Albumin 4.5 g/dL (3.5-5.0); Albumin Globulin Ratio 1.7 (1.0-2.8); Alkaline Phosphatase 111 U/L (38-126); Aspartate Aminotransferase 31 IU/L (14-36); BUN Creatinine Ratio 16.9 (6-22); Bilirubin Total 0.7 mg/dL (0.2-1.3); Blood Urea Nitrogen 10 mg/dL (7-17); Calcium 9.6 mg/dL (8.4-10.2); Carbon Dioxide 27 mmol/L (22-32); Chloride 95 mmol/L (98-107); Cholesterol 140 mg/dL (140-199); Estimated Glomerular Filt Rate > 60 mL/min (>60); Globulin 2.7 g/dL (1.7-4.1); Glucose 95 mg/dL (80-110); HDL Cholesterol 66 mg/dL (40-60); HEMOLYSIS < 15 (0-50); LDL Cholesterol Calculated 60 mg/dL (<100); Potassium 3.6 mmol/L (3.4-5.1); Sodium 132 mmol/L (137-145); Total Protein 7.2 g/dL (6.3-8.2); Triglycerides 70 mg/dL (35-150)
[2023-12-27 14:28] LABS: Percent Iron Saturation 20 % (15-50); Total Iron Binding Capacity 321 ug/dL (265-497); Transferrin 251 mg/dL (206-381)
[2023-12-27 14:47] LABS: TSH w/ Reflex to FT4 2.55 uIU/mL (0.47-4.68)
[2023-12-27 15:07] LABS: Vitamin B12 994 pg/mL (239-931)
[2023-12-27 15:16] LABS: Vitamin D 25 Hydroxy (D3) 66.4 ng/mL (30.0-100.0)
== END ==
PROVIDERS: PCP Family Medicine; Referring Provider Family Medicine; Visit Provider Family Medicine
DX: C54.1 Malignant neoplasm of endometrium (principal); E78.2 Mixed hyperlipidemia; D64.9 Anemia, unspecified; I10 Essential (primary) hypertension; G47.33 Obstructive sleep apnea (adult) (pediatric)
CPT/HCPCS: 36415; 80053; 80061; 82306; 82607; 83036; 83540; 83550; 84443; 85025

== ENCOUNTER 2024-09-23 11:22 | Emergency (ER) | payer MEDICARE, OTHER, SELFPAY ==
[2022-04-10 10:27] VITALS: BMI 36.3
[2024-09-23] VITALS (9 sets, daily range): BP systolic 136–183; BP diastolic 69–86; PULSE 75–87; RESP 14–17; TEMP 36.6; O2SAT 95–99; BMI 32.9
[2024-09-23] MEDS: OXYMETAZOLINE NASAL SPRAY 30 ML 2 SPRAYS NASAL (12:04)
[2024-09-23] MEDS: TRANEXAMIC ACID 1,000 MG VIAL 1000 MG TOP (12:27)
--- NOTE | 2024-09-23 12:32 | ED.EPISTAXIS ---
HPI - Epistaxis General Chief complaint: Nasal Problem Stated complaint: Bloody nose the last 4 hours Time Seen by Provider: 09/23/24 12:01 Source: patient Mode of arrival: Family Vehicle History of Present Illness HPI Narrative: 79-year-old female history of AFib status post Watchman not on any current anticoagulation presents with left-sided nosebleed after blowing her nose this morning with profuse bleeding despite pinching her nose. Patient denies any recent use of naproxen aleave ibuprofen or aspirin at this time. Other than what is stated 14 point review of system is negative. Related Data Home Medications ?Medication ?Instructions ?Recorded ?Confirmed CHOLECALCIFEROL (VITAMIN D3) 2,000 iu PO Q DAY ##0 05/28/11 08/18/24 (Vitamin D) COENZYME Q10 (COQ10) 300 mg PO Q DAY ##0 05/28/11 08/18/24 Fish Oil (#FISH OIL) 300 iu PO Q DAY ##0 05/28/11 08/18/24 ResMed continuous inhalation 12/17/23 08/18/24 aspirin 81 mg tablet,delayed 81 mg PO DAILY 12/17/23 08/18/24 release (Adult Low Dose Aspirin) metoprolol succinate 25 mg 25 mg PO DAILY 12/17/23 08/18/24 tablet,extended release 24 hr duloxetine 30 mg capsule,delayed 30 mg PO BID Chemo induced 08/18/24 08/18/24 release peripheral neuro Previous Rx's ?Medication ?Instructions ?Recorded furosemide 20 mg tablet (Lasix) See Rx Instructions PO QAM PRN 05/10/23 edema #180 tabs amlodipine 5 mg tablet See Rx Instructions .Route 04/16/24 .COMPLEX #180 tabs atorvastatin 10 mg tablet 10 mg PO DAILY #90 tabs 04/16/24 triamcinolone acetonide 0.1 % 1 applic topical BID PRN Itching 08/18/24 topical cream #15 grams Allergies Allergy/AdvReac Type Severity Reaction Status Date / Time No Known Drug Allergies Allergy Verified 09/23/24 11:31 Review of Systems Review of Systems ROS Unobtainable: All systems reviewed & are unremarkable except as noted in HPI and below Patient History Medical History Trigger finger of left hand Preventative health care Pre-diabetes Vitamin D deficiency Chronic atrial fibrillation Skin lesions, generalized Atrial fib/flutter, transient Palpitations Insomnia due to medical condition Obesity (BMI 30-39.9) Nonrheumatic aortic (valve) insufficiency (~2011) Nonrheumatic mitral (valve) insufficiency (~2011) Obstructive sleep apnea Hypertension Mixed hyperlipidemia (01/24/17) Essential hypertension (01/24/17) Surgical History Status post dilation and curettage History of carpal tunnel repair History of knee replacement History of knee replacement Status post discectomy Family History Child Age: 57 Aortic stenosis Father Diabetes mellitus Heart disease Sleep apnea Mother Age: 100 Dementia Hx of cancer of uterus Sister Age: 71 Hx of cancer of uterus Sleep apnea Social History household members: none alcohol intake: current Smoking Status: Never smoker alcohol intake frequency: holidays/special occasions only Exam Narrative Exam Narrative: GENERAL: [79] year old patient appears stated age. Well-developed patient, in mild distress. HEAD: Atraumatic. Normocephalic. EYES: Pupils equal round and reactive. Extraocular motions intact. No scleral icterus. No injection or drainage. ENT: Nose without bleeding, purulent drainage. Throat without erythema, tonsillar hypertrophy or exudate. Airway patent. NECK: Trachea midline. Non tender CARDIOVASCULAR: Regular rate and rhythm without murmurs, gallops, or rubs. RESPIRATORY: Clear to auscultation. Breath sounds equal bilaterally. No wheezes, rales, or rhonchi. GASTROINTESTINAL: Abdomen soft, non-tender, nondistended. EXTREMITIES: No edema or joint tenderness. BACK: Nontender without deformity or crepitance. No flank tenderness. NEURO: AOx3. SKIN: No rash or erythema of visible areas Initial Vital Signs Initial Vital Signs: Vital Signs Temperature 97.9 F 09/23/24 11:31 Pulse Rate 83 09/23/24 11:31 Respiratory Rate 17 09/23/24 11:31 Blood Pressure 145/82 H 09/23/24 11:31 Pulse Oximetry 98 09/23/24 11:31 Oxygen Delivery Method Room Air 09/23/24 11:31 Procedures Epistaxis Control Time of procedure: 15:27 Time Out Performed: Yes Nostril: left Nose Prepped With: oxymetazoline Direct Inspection: yes Clots Removed by: manually Cautery Used: none Device Inserted: nasal tampon Device Size: 5 Patient Tolerated Procedure: well and no complications Course Orders Ordered: ED Orders 09/23/24 12:30 CBC Auto Diff [Complete Blood Count AUTO DIFF] Stat PTT [PTT Partial Thromboplastin Enrique] Stat Prothrombin Time INR Stat Discontinued Medications Oxymetazoline HCl (Oxymetazoline Nasal [place] 30 Ml) 2 sprays NASAL NOW ONE Stop: 09/23/24 11:59 Last Admin: 09/23/24 12:04 Dose: 2 sprays Documented By: ZAKI Tranexamic Acid (Tranexamic Acid 1,000 Mg Vial) 1,000 mg TOP NOW ONE Stop: 09/23/24 12:25 Last Admin: 09/23/24 12:27 Dose: 1,000 mg Documented By: ZAKI Vital Signs Vital signs: Vital Signs - 8 hr 09/23/24 11:31 09/23/24 11:51 Temperature 97.9 F Pulse Rate 83 81 Respiratory Rate 17 Blood Pressure 145/82 H 183/86 H Pulse Oximetry 98 97 Oxygen Delivery Method Room Air MDM - Epistaxis MDM Narrative Medical decision making narrative: All lab work, vital signs, nurse triage note, medication list, previous ER visits all reviewed. Differential diagnosis includes anterior versus posterior epistaxis, lab derangement. Patient will follow up with PCP tomorrow or Saturday for rapid rhino removal and re-evaluation. Discharge Plan Departure Prescriptions: No Action Fish Oil (#FISH OIL) 300 iu PO Q DAY Qty: 0 CHOLECALCIFEROL (VITAMIN D3) (Vitamin D) 2,000 iu PO Q DAY Qty: 0 COENZYME Q10 (COQ10) 300 mg PO Q DAY Qty: 0 furosemide [Lasix] 20 mg tablet See Rx Instructions PO QAM PRN (Reason: edema) Qty: 180 3RF Dose Instruction: 1-2 tabs as needed for swelling PO QAM; Rx Instructions: 1-2 tabs as needed for swelling PO every morning PRN; amlodipine 5 mg tablet See Rx Instructions .ROUTE .COMPLEX Qty: 180 3RF Dose Instruction: TAKE 1 TABLET TWICE A DAY Rx Instructions: TAKE 1 TABLET TWICE A DAY atorvastatin 10 mg tablet 10 mg PO DAILY Qty: 90 3RF duloxetine 30 mg capsule,delayed release(DR/EC) 30 mg PO BID triamcinolone acetonide 0.1 % cream 1 applic Topical BID PRN (Reason: Itching) Qty: 15 0RF metoprolol succinate 25 mg tablet extended release 24 hr 25 mg PO DAILY ResMed continuous inhalation aspirin [Adult Low Dose Aspirin] 81 mg tablet,delayed release (DR/EC) 81 mg PO DAILY Referrals: Marco Slater DO [Primary Care Provider, Family Practice]
[2024-09-23 12:50] LABS: Add Manual Diff / Slide Review NO; Basophils Absolute Auto 100 /uL (0-100); Eosinophils Absolute Auto 400 /uL (0-450); Eosinophils Percent Auto 5.4 % (2-4); Hematocrit 32.5 % (36-46); Hemoglobin 10.9 g/dL (12.0-16.0); Lymphocytes Absolute Auto 900 /uL (1100-4500); Lymphocytes Percent Auto 12.9 % (25-40); Mean Corpuscular HGB Conc 33.5 % (30-36); Mean Corpuscular Hemoglobin 28.8 PG (26-34); Mean Corpuscular Volume 85.9 fL (80-100); Monocytes Absolute Auto 500 /uL (0-900); Monocytes Percent Auto 7.5 % (3-14); Neutrophils Absolute Auto 4900 /uL (1500-7000); Neutrophils Percent Auto 73.2 % (50-75); Platelet Count 215 X10^3/uL (150-400); Red Blood Cell Count 3.78 X10^6/uL (4.0-5.2); Red Cell Distribution Width 15.9 % (11.6-14.8); White Blood Cell Count 6.7 X10^3/uL (4.5-11.0)
[2024-09-23 12:59] LABS: INR 1.1 (0.9-1.3)
[2024-09-23 13:02] LABS: PTT Partial Thromboplastin Tim 34 SECONDS (25.1-36.5)
[2024-09-23] MEDS: AMOXICILLIN/CLAV 875/125 MG 1 TAB PO (15:42)
== END 2024-09-23 15:52 | disposition home or self-care (01) ==
PROVIDERS: Emergency Provider Family Medicine; PCP Family Medicine
DX: R04.0 Epistaxis (principal); Z79.01 Long term (current) use of anticoagulants
CPT/HCPCS: 30901; 36415; 85025; 85610; 85730; 99283

== ENCOUNTER → 2024-09-25 11:21 | Outpatient (CLI) | payer MEDICARE, OTHER, SELFPAY ==
[2022-04-10 10:27] VITALS: BMI 36.3
[2024-09-25 12:55] LABS: Alanine Aminotransferase 22 IU/L (<35); Aspartate Aminotransferase 29 IU/L (14-36); Cholesterol 140 mg/dL (140-199); Creatine Kinase 43 U/L (30-135); HDL Cholesterol 56 mg/dL (40-60); LDL Cholesterol Calculated 71 mg/dL (<100); Triglycerides 63 mg/dL (35-150)
[2024-09-25 13:06] LABS: LDL Cholesterol Direct 66 mg/dL (<100)
== END ==
PROVIDERS: PCP Family Medicine; Referring Provider Internal Medicine Cardiovascular Disease; Visit Provider Internal Medicine Cardiovascular Disease
DX: E78.5 Hyperlipidemia, unspecified (principal)
CPT/HCPCS: 36415; 80061; 82550; 83721; 84450; 84460

== ENCOUNTER 2024-10-01 14:17 | Emergency (ER) | payer MEDICARE, OTHER, SELFPAY ==
[2022-04-10 10:27] VITALS: BMI 36.3
[2024-10-01 14:40] VITALS: BP 135/67; PULSE 81; RESP 18; TEMP 36.8; O2SAT 98; BMI 33.3
[2024-10-01] MEDS: OXYMETAZOLINE NASAL SPRAY 30 ML 2 SPRAYS NASAL (15:09)
--- NOTE | 2024-10-01 15:47 | ED.GENADULT ---
HPI - General Adult General Chief complaint: Nasal Problem Stated complaint: Nose bleed Time Seen by Provider: 10/01/24 14:43 Source: patient Mode of arrival: Ambulatory History of Present Illness HPI narrative: 79-year-old female with a history of atrial fibrillation on low-dose aspirin and a history of an acute epistaxis episode in the past. Today she has had 5-6 episodes that were not ceasing. The patient has seen ENT in the past who did not feel that there was a specific vessel to cauterize. Patient comes in with a home packing and is not actively bleeding. Patient denies any shortness of breath chest pain or any other symptoms. Related Data Home Medications ?Medication ?Instructions ?Recorded ?Confirmed CHOLECALCIFEROL (VITAMIN D3) 2,000 iu PO Q DAY ##0 05/28/11 09/25/24 (Vitamin D) COENZYME Q10 (COQ10) 300 mg PO Q DAY ##0 05/28/11 09/25/24 Fish Oil (#FISH OIL) 300 iu PO Q DAY ##0 05/28/11 09/25/24 ResMed continuous inhalation 12/17/23 09/25/24 aspirin 81 mg tablet,delayed 81 mg PO DAILY 12/17/23 09/25/24 release (Adult Low Dose Aspirin) metoprolol succinate 25 mg 25 mg PO DAILY 12/17/23 09/25/24 tablet,extended release 24 hr duloxetine 30 mg capsule,delayed 30 mg PO BID Chemo induced 08/18/24 09/25/24 release peripheral neuro Previous Rx's ?Medication ?Instructions ?Recorded furosemide 20 mg tablet (Lasix) See Rx Instructions PO QAM PRN 05/10/23 edema #180 tabs amlodipine 5 mg tablet See Rx Instructions .Route 04/16/24 .COMPLEX #180 tabs atorvastatin 10 mg tablet 10 mg PO DAILY #90 tabs 04/16/24 triamcinolone acetonide 0.1 % 1 applic topical BID PRN Itching 08/18/24 topical cream #15 grams amoxicillin 875 mg-potassium 1 tab PO BID #14 tabs 09/23/24 clavulanate 125 mg tablet Allergies Allergy/AdvReac Type Severity Reaction Status Date / Time No Known Drug Allergies Allergy Verified 09/25/24 10:29 Review of Systems Review of Systems ROS Unobtainable: All systems reviewed & are unremarkable except as noted in HPI and below Patient History Medical History Trigger finger of left hand Preventative health care Pre-diabetes Vitamin D deficiency Chronic atrial fibrillation Skin lesions, generalized Atrial fib/flutter, transient Palpitations Insomnia due to medical condition Obesity (BMI 30-39.9) Nonrheumatic aortic (valve) insufficiency (~2011) Nonrheumatic mitral (valve) insufficiency (~2011) Obstructive sleep apnea Hypertension Mixed hyperlipidemia (01/24/17) Essential hypertension (01/24/17) Surgical History Status post dilation and curettage History of carpal tunnel repair History of knee replacement History of knee replacement Status post discectomy Family History Child Age: 57 Aortic stenosis Father Diabetes mellitus Heart disease Sleep apnea Mother Age: 100 Dementia Hx of cancer of uterus Sister Age: 71 Hx of cancer of uterus Sleep apnea Social History household members: none alcohol intake: current Smoking Status: Never smoker alcohol intake frequency: holidays/special occasions only Exam Initial Vital Signs Initial Vital Signs: Vital Signs Temperature 98.2 F 10/01/24 14:40 Pulse Rate 81 10/01/24 14:40 Respiratory Rate 18 10/01/24 14:40 Blood Pressure 135/67 10/01/24 14:40 Pulse Oximetry 98 10/01/24 14:40 Oxygen Delivery Method Room Air 10/01/24 14:40 General: Patient appears to be in no acute distress, acting appropriately Head: normocephalic, atraumatic, HEENT: Pupils equal round reactive, eyes tracking well, neck supple, no JVD nares: left nare has pool of blood that is clotting some, right nare: normal Heart: regular rate and rhythm, no murmurs, rubs, or gallops heard Lungs: clear to auscultation, no adventitious sounds Abdomen: soft , nontender, nondistended, positive bowel sounds Neurological: no focal neurological signs, moving all extremities well, alert and oriented x3, Psych: good judgment ,good insight, mood is normal. Course Orders Ordered: Discontinued Medications Oxymetazoline HCl (Oxymetazoline Nasal [place] 30 Ml) 2 sprays NASAL NOW ONE Stop: 10/01/24 14:44 Last Admin: 10/01/24 15:09 Dose: 2 sprays Documented By: EMMANUELLE Vital Signs Vital signs: Vital Signs - 8 hr 10/01/24 14:40 Temperature 98.2 F Pulse Rate 81 Respiratory Rate 18 Blood Pressure 135/67 Pulse Oximetry 98 Oxygen Delivery Method Room Air Medical Decision Making Differential Diagnosis Differential Diagnosis: epistaxis, heriditary thrombophilia , Condition is:: Improved Condition is at treatment goal?: No (better after couple sprays of afrin in affected nare and blowing clot) Medical Records Medical records reviewed: Yes I reviewed the patient's medical records. Medical records narrative: pcp referred to ent who did not feel need to cauterize Lab Data Lab results reviewed: Yes I reviewed the patient's lab results. Lab results narrative: slightly anemic but otherwise normal MDM Narrative Medical decision making narrative: 79-year-old female with recurrent epistaxis of the left nare is no longer bleeding and is better after blowing out the clots and a couple sprays of Afrin. Discharge Plan Departure Patient Disposition: Home Clinical Impression: Epistaxis Instructions: DI for Nosebleed Activity Restrictions/Additional Instructions: Go ahead and use Afrin twice in the affected nare. Go ahead and used a tampon packing again if needed. Follow up with ENT as needed. Prescriptions: No Action Fish Oil (#FISH OIL) 300 iu PO Q DAY Qty: 0 CHOLECALCIFEROL (VITAMIN D3) (Vitamin D) 2,000 iu PO Q DAY Qty: 0 COENZYME Q10 (COQ10) 300 mg PO Q DAY Qty: 0 furosemide [Lasix] 20 mg tablet See Rx Instructions PO QAM PRN (Reason: edema) Qty: 180 3RF Dose Instruction: 1-2 tabs as needed for swelling PO QAM; Rx Instructions: 1-2 tabs as needed for swelling PO every morning PRN; amlodipine 5 mg tablet See Rx Instructions .ROUTE .COMPLEX Qty: 180 3RF Dose Instruction: TAKE 1 TABLET TWICE A DAY Rx Instructions: TAKE 1 TABLET TWICE A DAY atorvastatin 10 mg tablet 10 mg PO DAILY Qty: 90 3RF duloxetine 30 mg capsule,delayed release(DR/EC) 30 mg PO BID triamcinolone acetonide 0.1 % cream 1 applic Topical BID PRN (Reason: Itching) Qty: 15 0RF metoprolol succinate 25 mg tablet extended release 24 hr 25 mg PO DAILY ResMed continuous inhalation aspirin [Adult Low Dose Aspirin] 81 mg tablet,delayed release (DR/EC) 81 mg PO DAILY amoxicillin-pot clavulanate 875-125 mg tablet 1 tab PO BID Qty: 14 0RF Referrals: Marco Slater DO [Primary Care Provider, Family Practice] Stand Alone Forms: Patient Portal/API
[2024-10-01 16:09] VITALS: BP 132/67; PULSE 80; RESP 16; TEMP 36.5; O2SAT 99
== END 2024-10-01 16:09 | disposition home or self-care (01) ==
PROVIDERS: Emergency Provider Family Medicine; PCP Family Medicine
DX: R04.0 Epistaxis (principal); Z79.82 Long term (current) use of aspirin
CPT/HCPCS: 99282

== ENCOUNTER → 2025-01-12 14:07 | Outpatient (CLI) | payer MEDICARE, OTHER, SELFPAY ==
[2022-04-10 10:27] VITALS: BMI 36.3
--- NOTE | 2025-01-12 14:09 | DI.RAD.S_ITS ---
PROCEDURE: XR ANKLE RT MIN 3V INDICATIONS: Worsening chronic right ankle pain TECHNIQUE: 3 views of the ankle were acquired. COMPARISON: None. 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 Tibiotalar as well as intercarpal arthritic degenerative changes. Moderate posterior and plantar calcaneal spurs. Soft tissues: No tibiotalar joint effusion. Achilles tendon appears normal. 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 on 01/13/2025 at 13:36
== END ==
PROVIDERS: PCP Family Medicine; Referring Provider Family Medicine; Visit Provider Family Medicine
DX: M25.571 Pain in right ankle and joints of right foot (principal); M77.31 Calcaneal spur, right foot; G89.29 Other chronic pain; Z87.81 Personal history of (healed) traumatic fracture
CPT/HCPCS: 73610